=== PATIENT | female | born 1960 | race Caucasian/White ===

== ENCOUNTER → 2017-01-04 | Outpatient (CLI) | payer OTHER | END | disposition home or self-care (01) | LOC: LABPAT 14:31 | PROVIDERS: ATTEND Orthopaedic Surgery | DX: Z01.812 Encounter for preprocedural laboratory examination (principal) | CPT/HCPCS: 87070 ==

== ENCOUNTER 2017-01-09 12:34 | Inpatient (IN) | payer OTHER ==
[2017-01-04 10:31] VITALS: BMI 36.0
[~2017-01-09 12:34] MED LIST: ACETAMINOPHEN TAB 500 MG TAB PO ONE; DEXAMETHASONE SOD PHOSPHATE 10 MG/ML 1 ML VIAL IV ONE; HYDROmorphone 1 MG/ML 1 ML SYRINGE IVP PRN; ONDANSETRON 4 MG/2 ML VIAL IVP ONE; Pre Op ABX Message 1 EACH MISC MISCELLANE ONE; TRANEXAMIC ACID 1,000 MG in SODIUM CHLORIDE 0.9% 100 ML IVPB ONE; VANCOMYCIN 1,500 MG in SODIUM CHLORIDE 0.9% 250 ML IVPB ONE
[2017-01-09] MEDS ORDERED: LIDOCAINE 1% 20 ML VIAL (10MG/ML) FOR IV START INTRADERMA ONE (13:18)
[2017-01-09] MEDS: LACTATED RINGERS 1,000 ML IV SCH ×2 (13:19→21:26)
[2017-01-09] MEDS ORDERED: MIDAZOLAM 2 MG/2 ML VIAL IV ONE (14:05)
[2017-01-09] MEDS ORDERED: fentaNYL (PF) 50 MCG/ML 2 ML AMP ONE (16:43)
[2017-01-09] MEDS ORDERED: SODIUM CHLORIDE 0.9% 100 ML BAG ONE (16:43)
[2017-01-09] MEDS ORDERED: TRANEXAMIC ACID 1,000 MG/10 ML VIAL ONE (16:43)
[2017-01-09] MEDS ORDERED: MIDAZOLAM 2 MG/2 ML VIAL ONE (16:43)
[2017-01-09] MEDS ORDERED: ceFAZolin 3,000 MG in SODIUM CHLORIDE 0.9% IRRIGATIO 3,000 ML IRRIGATION ONE (16:43)
[2017-01-09] MEDS ORDERED: SODIUM CHLORIDE 0.9% 100 ML with ceFAZolin 2,000 MG IV ONE ×2 (16:43)
[2017-01-09] MEDS ORDERED: PHENYLEPHRINE-0.9% NACL SYG 1 MG/10 ML SYRINGE ONE (16:43)
[2017-01-09] MEDS ORDERED: PROPOFOL 10 MG/ML 20 ML VIAL IV ONE (16:43)
[2017-01-09] MEDS: ROPIVACAINE 246.25 MG, EPINEPHrine 0.5 MG, KETOROLAC 30 MG, cloNIDine HCL/PF 80 MCG, WA... MISCELLANE ONE ×10 (17:19→18:01)
[2017-01-09] MEDS ORDERED: WARFARIN 5 MG TAB PO ONE (18:00)
[2017-01-09] MEDS ORDERED: LACTATED RINGERS 1,000 ML IV ONE (18:11)
--- NOTE | 2017-01-09 18:36 | P.OP ---
Date of Procedure: 01/09/17 Procedure(s) Performed: PREOPERATIVE DIAGNOSIS: Right knee severe osteoarthritis with genu varum POSTOPERATIVE DIAGNOSIS: Right knee severe osteoarthritis with genu varum OPERATION: Right knee cemented total replacement arthroplasty. ANESTHESIA: Spinal ESTIMATED BLOOD LOSS: 100 ml. LUMP MACHINE OPERATOR: Christa Win PA-C (assistance with: patient positioning, retraction, exposure, hemostasis, leg positioning, implantation, irrigation, closure, dressing) COMPLICATIONS: None apparent. COMPONENTS IMPLANTED: Persona system from [employer] INDICATIONS: Mrs. Mcneal is a 56-year-old female with a history of right knee osteoarthritis. The patient's knee is end-stage according to MRI, and conservative management has failed. The operation of knee replacement has been discussed at length in the office, as well as potential risks and complications. These are inclusive of, but not limited to: bleeding, infection , scarring, discomfort, blood vessel and nerve damage, need for further surgery , failure to relieve symptoms, persistence, recurrence, or worsening of problems , loosening, dislocation, wear, blood clot, pulmonary embolism, , gait dysfunction, stiffness, and other risks as discussed in the office. The patient elects to proceed and the consent form has been signed. PROCEDURE: The patient was taken to the operating room and positioned on the operating room table in the supine position. Anesthesia was initiated. Care was taken to make sure that all pressure points were adequately padded. The operative lower extremity was prepped and draped in the usual aseptic fashion using ChloraPrep. Ioban drape was used for the case and the patient received intravenous antibiotics within one hour of the incision. A pneumotourniquet and leg oliva were used for the case. The limb was exsanguinated with an Esmarch bandage and the tourniquet was inflated to 350 mmHg. Time-out was called confirming the patient's identity, side, procedure and administration of antibiotics. The incision was then created midline directly over the knee, carried down through skin and into the subcutaneous tissues and down to fascia. Full thickness subcutaneous medial flap was developed. Medial parapatellar arthrotomy was performed and the interior of the knee was inspected. There was end-stage osteoarthritis of the knee with a mild to moderate genu varum type deformity. The fat pad was excised and proximal medial release on the tibia was completed using meticulous dissection and a curved osteotome. The anterior cruciate ligament was taken down. Note was made of significant attrition of the anterior and significant degenerative appearance of the posterior cruciate ligaments. The exposure was excellent. The knee was flexed 90 degrees and the patella was everted. A spot was chosen on the femur approximately 1 cm anterior to the posterior cruciate ligament insertion and an intramedullary hole was created within the femur. The intramedullary guide was then set to 5 degrees of valgus. The distal cutting block was attached and pinned into position. An appropriate amount of distal femoral resection was set. The oscillating saw was then used to make the distal femoral cut. This cut was confirmed to be flat with the flat end of an osteotome. The retractors were placed around the tibia and the tibial surface was addressed. The angle and depth of resection was adjusted using an extramedullary cutting guide. The guide had a built-in 3 degree posterior slope cut. Once the cutting guide was adjusted appropriately and in line with the axis of the tibia and confirmed to be in good position in relation to the second metatarsal and transmalleolar axis, the tibial cut was then created with protection of the posterior neurovascular structures and the collateral ligaments. The tibial cut surface was removed and sized. Femoral sizing was then accomplished using anterior referencing. Care was taken to analyze the posterior condyles for signs of deficiency or severe wear, and adjustments to the guide were made, as appropriate. 3 degree external rotation pins were placed. The cutting jig for the femur was applied to these pins. The planned cuts were further analyzed prior to performing them with the oscillating saw. No femoral notching was produced. Bone fragments were removed and the cut surfaces were finished, as necessary, with a reciprocating saw. Spacer block technique was then used to confirm that the flexion and extension gaps were equal. Soft tissue releases and adjustment of the tibial and/or femoral cuts were made, as necessary, until the gaps were equal. This included release of the posterior cruciate ligament, which was tight in this patient and , if left unreleased, would have resulted in poor kinematics and possibly early loosening. The femur was then further finished for a posterior cruciate ligament substituting component. Patellar resurfacing was performed using a reamer. The size of the required patellar component was estimated and the patellar surface was then reamed down to a residual thickness which would recreate the [place] thickness with the component. The placement of the patellar component was influenced by the degree of patellar subluxation, if any, noted on the preoperative x-rays. Prior to placing trial components, anesthetic solution consisting of ropivicaine with epinephrine, ketorolac, and clonidine was injected carefully and methodically in a grid pattern using aspiration technique into the soft tissue around the knee circumferentially, starting with the deeper tissues first and progressing to fascia, and then finally the skin/subcutaneous tissue. Particular care was taken when injecting the posterior capsule. The trial components were inserted. The tibial tray was allowed to self center and the patella was noted to track very well. The position of the tibial component was marked and the tibia was then finished for a stemmed tibial component. Cement was mixed on the back table and applied to the final components. Trial components were removed and the cut surfaces of the bone were pulse lavaged thoroughly and dried. Cement was then applied to the tibial surface and pressurized into the surface using finger pressurization technique. The tibial component was then applied and excess cement was removed after it was impacted securely and noted to be flush with the cut surface. In similar fashion, the cement was applied to the cut femoral surface, pressurized in using finger pressurization and the component was impacted into place. Excess cement was removed. The polyethylene spacer was then implanted and locked into position. The patellar component was then applied in similar technique and a patellar clamp was used to hold the patella in place as the cement hardened. Once the cement had fully hardened, the knee was reinspected. Any other cement extrusion was removed and final kinematic testing showed range of motion from 0 to 130 degrees with excellent stability, both medially and laterally and appropriate alignment of the leg. Patellar tracking was excellent. The knee was then thoroughly pulse lavaged with normal saline. The tourniquet was deflated and hemostasis was obtained with electrocautery and IV tranexamic acid, 1 g given at the start of the operation and 1 g at the start of closure. Closure was with #2 Ethibond in the fascia/capsule and supplemented with #2 Quill, 2-0 Vicryl suture was used for the subcutaneous tissues and 3-0 Quill for the skin. Dermabond/Steri-Strips were then applied. A lightly compressive dressing was applied using Webril and an Nick wrap. The patient was then transferred to stretcher and taken to the recovery room in stable condition. Sponge and needle counts were correct.
[2017-01-09] MEDS ORDERED: ACETAMINOPHEN TAB 325 MG TAB PO PRN (18:58)
[2017-01-09] MEDS ORDERED: NA PHOS,M-B/NA PHOS,DI-BA 133 ML ENEMA RECTAL PRN (18:58)
[2017-01-09] MEDS ORDERED: NALOXONE 0.4 MG/ML 1 ML VIAL IV PRN (18:58)
[2017-01-09] MEDS ORDERED: HYDROmorphone 1 MG/ML 1 ML SYRINGE IVP PRN ×2 (18:58)
[2017-01-09] MEDS ORDERED: MAGNESIUM HYDROXIDE 2,400 MG/10 ML CUP PO PRN (18:58)
[2017-01-09] MEDS ORDERED: BISACODYL 10 MG SUPP RECTAL PRN (18:58)
[2017-01-09] MEDS ORDERED: HYDROcodone/APAP 5-325MG 1 EACH TAB PO PRN (18:58)
[2017-01-09] MEDS: ONDANSETRON 4 MG/2 ML VIAL IVP PRN (19:05)
[2017-01-09] MEDS ORDERED: PROMETHAZINE INJ 25 MG/ML 1 ML VIAL IVPB ONE (19:14)
[2017-01-09] MEDS ORDERED: diphenhydrAMINE 50 MG/ML 1 ML VIAL IVP ONE (19:19)
[2017-01-09] MEDS ORDERED: FAMOTIDINE 20 MG/2 ML VIAL IVP ONE (19:26)
--- NOTE | 2017-01-09 19:56 | XR ---
EXAMINATION TYPE: XR knee limited RT DATE OF EXAM: 01/09/2017 7:32 PM CLINICAL HISTORY: Right knee pain and arthritis status post total knee replacement. TECHNIQUE: Portable AP and crosstable lateral views of the right knee are obtained immediately posto peratively. COMPARISON: None FINDINGS: [place] osseous structures are demineralized. Metallic hardware from total right knee arthr oplasty is seen and appears satisfactory in alignment and position. There is evidence of recent surg virgen with diffuse subcutaneous gas , and soft tissue swelling noted. IMPRESSION: METALLIC HARDWARE FROM TOTAL RIGHT KNEE ARTHROPLASTY IS SATISFACTORY IN ALIGNMENT.
[2017-01-09] MEDS: SENNOSIDES-DOCUSATE SODIUM 1 EACH TAB PO SCH (21:25)
[2017-01-10] MEDS: ceFAZolin 2 GM in SODIUM CHLORIDE 0.9% 100 ML IVPB SCH ×2 (00:36→07:18)
[2017-01-10] MEDS: HYDROcodone/APAP 5-325MG 1 EACH TAB PO PRN ×3 (00:39→11:23)
[2017-01-10] MEDS: LACTATED RINGERS 1,000 ML IV SCH ×5 (05:48→20:27)
[2017-01-10] MEDS: hydrOXYzine PAMOATE 25 MG CAP PO PRN ×4 (06:24→23:35)
[2017-01-10 07:34] LABS: INR 1.7 (<1.1); Prothrombin Time 16.2 sec (9.0-12.0)
[2017-01-10 08:29] LABS: Basophils % (A) 0 %; CHCM 33.6; Eosinophils % (A) 0 %; HCT 37.3 % (34.0-46.0); HDW 2.56; HGB 12.9 gm/dL (11.4-16.0); Luc # (Auto) 0.12; Luc % (Auto) 1; Lymphocytes # (A) 2.4 k/uL (1.0-4.8); Lymphocytes % (A) 19 %; MCHC 34.5 g/dL (31.0-37.0); MCV 95.9 fL (80.0-100.0); Mean Platelet Volume 8.2; Monocytes # (A) 0.6 k/uL (0-1.0); Monocytes % (A) 5 %; Neutrophils # (A) 9.1 k/uL (1.3-7.7); Neutrophils % (A) 74 %; RBC 3.89 m/uL (3.80-5.40); RDW 13.9 % (11.5-15.5); WBC 12.2 k/uL (3.8-10.6); WBC (Perox) 12.73
--- NOTE | 2017-01-10 09:26 | P.PN ---
Subjective Principal diagnosis: Status post right total knee arthroplasty Patient is postop day #1 from right total knee arthroplasty per Dr. Ness. She' s doing well. She has no new complaints. She denies new numbness, tingling, calf pain or other. Review of systems is negative for fever chills, chest pain , shortness breath, nausea, vomiting, headaches, slurred speech or other. Objective - Vital Signs Vital signs: Vital Signs Temp 98.1 F 01/10/17 08:10 Pulse 80 01/10/17 08:10 Resp 16 01/10/17 08:10 BP 109/53 01/10/17 08:10 Pulse Ox 95 01/10/17 08:10 Intake & Output 01/09/17 01/10/17 01/10/17 18:59 06:59 18:59 Intake Total 1501 250 Output Total 50 Balance 1451 250 Weight 104.326 kg Intake: IV 1501 250 Output: Estimated Blood Loss 50 Other: Voiding Method Toilet Toilet # Voids 1 - Exam Surgical wound is benign. There is no active bleeding, dehiscence or drainage. Neurovascular status of the right lower extremity is intact. She has active motor at the ankle, foot and toes. Sensation to light touch is intact throughout the right lower extremity. Calf is soft and nontender. 2+ dorsalis pedis pulse and less than 2 second cap refill is present. - Constitutional General appearance: Present: no acute distress - Psychiatric Psychiatric: Present: A&O x's 3, appropriate affect, intact judgment & insight - Labs CBC & Chem 7: 01/10/17 06:41 Labs: Abnormal Lab Results - Last 24 Hours (Table) 01/10/17 01/10/17 Range/Units 06:41 06:41 WBC 12.2 H (3.8-10.6) k/uL Neutrophils # 9.1 H (1.3-7.7) k/uL PT 16.2 H (9.0-12.0) sec Assessment and Plan (1) Osteoarthritis of right knee Narrative/Plan: She'll continue with routine postop orthopedic protocol including pain management, wound care, physical therapy, DVT prophylaxis and medical management. Expect that she'll discharge to home tomorrow with home health care. Status: Acute Time with Patient: Less than 30
[2017-01-10] MEDS ORDERED: diphenhydrAMINE ELIXIR 25 MG/10 ML CUP PO PRN (11:14)
[2017-01-10] MEDS: MULTIVITAMINS, THERA 1 EACH TAB PO SCH (13:39)
[2017-01-10] MEDS ORDERED: HYDROcodone/APAP 10-325MG 1 EACH TAB PO PRN (15:07)
[2017-01-10] MEDS: HYDROmorphone 1 MG/ML 1 ML SYRINGE IVP PRN ×2 (15:44→22:00)
[2017-01-10 16:15] LABS: Appearance,Urine Clear (Clear); Bilirubin,Urine Negative (Negative); Glucose,Urine (UA) Negative (Negative); Ketones,Urine Negative (Negative); Leukocyte Esterase,Urine Small (Negative); Nitrite,Urine Negative (Negative); Particle Count 614; Protein,Urine Negative (Negative); Specific Gravity,Urine 1.016 (1.001-1.035); UA Billing (MACRO vs. MICRO) MICRO; Urobilinogen,Urine <2.0 mg/dL (<2.0); WBC,Urine 7 /hpf (0-5)
[2017-01-10] MEDS: HYDROcodone/APAP 10-325MG 1 EACH TAB PO PRN ×2 (17:41→23:35)
--- NOTE | 2017-01-10 17:48 | CONS ---
DATE OF CONSULTATION: 01/10/2017 REASON FOR CONSULTATION: Advice regarding hyperlipidemia and other multiple medical issues, requested by Orthopedic Surgery. HISTORY OF PRESENT ILLNESS: This 56-year-old woman with a past medical history of GERD, hyperlipidemia, DJD, history of sleep apnea, history of stress incontinence, anxiety, depression, PTSD, underwent right knee joint arthroplasty by Dr. Ness. The patient is being closely monitored. There is no history of any fever, rigor, or chills. No history of any headache, loss of consciousness, seizures at this time. PAST MEDICAL HISTORY: 1. History of DJD. 2. History of hyperlipidemia. 3. Sleep apnea. 4. Stress incontinence. 5. Laparoscopic exam. 6. Anxiety. 7. Depression. 8. PTSD. HOME MEDICATIONS: 1. Trazodone 50 mg at bedtime. 2. Requip 1 mg at bedtime. 3. Lamictal 200 mg b.i.d. 4. Benadryl 12.5 mg daily p.r.n. 5. Wellbutrin 75 mg b.i.d. 6. Zocor 40 mg at bedtime. 7. Zoloft 100 mg b.i.d. 8. Ditropan 5 mg at bedtime. 9. Omeprazole 20 mg b.i.d. 10. Multivitamins 1 p.o. daily. 11. Depo-Provera 150 mg IM. 12. Claritin 10 mg daily. 13. Lidocaine 1 application topically p.r.n. 14. Hydrocodone 1 tablet p.o. t.i.d. 15. Vitamin D3 2000 daily. 16. Refresh Tears 1 drop b.i.d. 17. Pepto-Bismol 30 mL b.i.d. 18. Coumadin 2.5 mg daily. 19. Senokot-S one tablet b.i.d. 20. [place] 10 mg 1 to 2 q.6 p.r.n. ALLERGIES: 1. ALPRAZOLAM. 2. ASPIRIN. 3. DICLOFENAC. 4. DEPAKOTE. 5. DALMANE. 6. MOTRIN. 7. NSAIDS. 8. COMPAZINE. 9. SEROQUEL. 10. TOLECTIN. FAMILY HISTORY: No history of heart disease or strokes in the family. SOCIAL HISTORY: No history of smoking. Occasional alcohol intake. REVIEW OF SYSTEMS: ENT: No diminishing hearing. No diminished vision. CARDIOVASCULAR SYSTEM: No angina, palpitations. RESPIRATORY SYSTEM: No cough, hemoptysis. GI: No nausea, vomiting. : No dysuria. NERVOUS SYSTEM: No numbness or weakness. ALLERGY/IMMUNOLOGY: No asthma or hayfever. MUSCULOSKELETAL: As mentioned earlier. HEMATOLOGY/ONCOLOGY: No history of anemia. ENDOCRINE: No history of diabetes, hypothyroidism. CONSTITUTIONAL: As mentioned earlier. DERMATOLOGY: Negative. RHEUMATOLOGY: Negative. PSYCHIATRY: As mentioned earlier. PHYSICAL EXAMINATION: Alert and oriented x3. Pulse is 80, blood pressure 109/53, respiration 16, temperature 98.1, pulse ox 95% on room air. HEENT: Conjunctivae normal. NECK: No jugular venous distention. CARDIOVASCULAR SYSTEM: S1, S2 muffled. RESPIRATORY SYSTEM: Breath sounds diminished at the bases. No rhonchi. No crackles. ABDOMEN: Soft, non-tender. LEGS: Status post right knee arthroplasty. NERVOUS SYSTEM: Higher functions as mentioned earlier. Moves all 4 limbs. No focal motor or sensory deficit. LYMPHATICS: No lymph node palpable in neck, axillae or groin. SKIN: No ulcer, rash, bleeding. LABS: WBC 12.2, hemoglobin 12.9. INR 1.7. ASSESSMENT: 1. Status post right knee arthroplasty. 2. Increased white count, possibly reactive. 3. Anxiety, depression, post-traumatic stress disorder. 4. History of gastroesophageal reflux disease. 5. Hyperlipidemia. 6. History of degenerative joint disease. 7. Sleep apnea. 8. Stress incontinence. 9. FULL CODE. RECOMMENDATIONS AND DISCUSSION: In this 56-year-old woman who presented with multiple complex medical issues, we will monitor the patient closely, continue the current medications, continue symptomatic treatment. I would recommend resuming the home medications, DVT prophylaxis, incentive spirometry. Will follow the patient closely with you. Patient may be asked to follow up primary physician closely after discharge. Thank you, Dr. Ness, for letting us participate in the care of this patient.
[2017-01-10] MEDS ORDERED: WARFARIN 5 MG TAB PO ONE (18:00)
[2017-01-10] MEDS: CALCIUM CARBONATE 500 MG CHEWABLE PO PRN (20:23)
[2017-01-10] MEDS: SENNOSIDES-DOCUSATE SODIUM 1 EACH TAB PO SCH (20:24)
[2017-01-10] MEDS: ARTIFICIAL TEARS-HYPROMELLOSE DROPS 15 ML BTL BOTH EYES SCH (20:24)
[2017-01-10] MEDS: SERTRALINE 100 MG TAB PO SCH (20:25)
[2017-01-10] MEDS: PANTOPRAZOLE 40 MG TABLET PO SCH (20:25)
[2017-01-10] MEDS: lamoTRIgine 100 MG TAB PO SCH (20:25)
[2017-01-10] MEDS: buPROPion 75 MG TAB PO SCH (20:25)
[2017-01-10] MEDS: BISMUTH SUBSALICYLATE 4,192 MG/240 ML BOTTLE PO SCH (20:26)
[2017-01-10] MEDS ORDERED: ATORVASTATIN 20 MG TAB PO SCH (21:00)
[2017-01-10] MEDS ORDERED: traZODone HCL 50 MG TAB PO SCH (21:00)
[2017-01-10] MEDS ORDERED: OXYBUTYNIN CHLORIDE 5 MG TAB PO SCH (21:00)
[2017-01-11] MEDS: hydrOXYzine PAMOATE 25 MG CAP PO PRN (04:47)
[2017-01-11] MEDS: HYDROcodone/APAP 10-325MG 1 EACH TAB PO PRN ×2 (04:47→10:11)
[2017-01-11] MEDS: ONDANSETRON 4 MG/2 ML VIAL IVP PRN (04:50)
[2017-01-11] MEDS: ARTIFICIAL TEARS-HYPROMELLOSE DROPS 15 ML BTL BOTH EYES SCH (07:28)
[2017-01-11] MEDS: lamoTRIgine 100 MG TAB PO SCH (07:29)
[2017-01-11] MEDS: SERTRALINE 100 MG TAB PO SCH (07:29)
[2017-01-11] MEDS: PANTOPRAZOLE 40 MG TABLET PO SCH (07:29)
[2017-01-11] MEDS: buPROPion 75 MG TAB PO SCH (07:29)
[2017-01-11] MEDS: BISMUTH SUBSALICYLATE 4,192 MG/240 ML BOTTLE PO SCH (07:30)
[2017-01-11] MEDS: MULTIVITAMINS, THERA 1 EACH TAB PO SCH (07:30)
[2017-01-11 07:31] VITALS: RESP 16
[2017-01-11] MEDS: LACTATED RINGERS 1,000 ML IV SCH (07:31)
--- NOTE | 2017-01-11 08:21 | P.DS ---
Providers Date of admission: 01/09/17 12:34 Expected date of discharge: 01/11/17 Attending physician: Josué Ness Consults: 01/09/17 18:58 Consult Physician Routine Consulting Provider: Esvin Santana Consult Reason/Comments: medical management Do you want consulting provider notified?: Yes Primary care physician: Stated None - Discharge Diagnosis(es) (1) Unilateral primary osteoarthritis, right knee Current Visit: Yes Status: Acute (2) Status post total right knee replacement Current Visit: Yes Status: Acute Hospital Course: This is a 56-year-old female who was last seen with complaint of continued right knee pain. The patient has a known history of degenerative arthritis of the right knee and presents to discuss surgical options. After discussion and consideration the patient elects to proceed with total right knee arthroplasty. The patient is seen preoperatively by her primary care physician at the [facility] and cleared for surgery. The patient is admitted to [facility] for total right knee arthroplasty. The procedures performed without complication or sequelae. Patient is doing well postoperatively. Vital signs are stable at discharge. Labs are stable at discharge. the patient is ambulating well with walker with minimal assistance. The patient is discharged to home on postop day #2 pending medical clearance. [facility] see [facility]. Plan - Discharge Summary New Discharge Prescriptions: HYDROcodone/APAP 10-325MG [[place] 10-325] 1 - 2 tab PO Q4-6H PRN #90 tab PRN Reason: Pain Sennosides-Docusate Sodium [Senokot-S] 1 tab PO BID #60 tablet Warfarin [Coumadin] 2.5 mg PO DAILY #1 tab Discharge Medication List Bismuth Subsalicylate [Pepto-Bismol] 30 ml PO BID 01/04/17 [History] Carboxymethylcellulose Sodium [Refresh Tears] 1 drop BOTH EYES BID 01/04/17 [ History] Cholecalciferol [Vitamin D3] 2,000 unit PO DAILY 01/04/17 [History] HYDROcodone/APAP 10-325MG [[place] 10-325] 1 tab PO TID 01/04/17 [History] Lidocaine 4% Cream [Lmx 4] 1 applic TOPICAL BID PRN 01/04/17 [History] Loratadine [Claritin] 10 mg PO DAILY 01/04/17 [History] Medroxyprogesterone Acetate [Depo-Provera] 150 mg IM Q90D 01/04/17 [History] Multivitamin [Men's Multi-Vitamin] 1 tab PO DAILY 01/04/17 [History] Omeprazole 20 mg PO BID 01/04/17 [History] Oxybutynin Chloride [Ditropan] 5 mg PO HS 01/04/17 [History] Sertraline [Zoloft] 100 mg PO BID 01/04/17 [History] Simvastatin [Zocor] 40 mg PO HS 01/04/17 [History] buPROPion [Wellbutrin] 75 mg PO BID 01/04/17 [History] diphenhydrAMINE HCL [Benadryl] 12.5 mg PO DAILY PRN 01/04/17 [History] lamoTRIgine 200 mg PO BID 01/04/17 [History] rOPINIRole HCL [Requip] 1 mg PO HS 01/04/17 [History] traZODone HCL 50 mg PO HS 01/04/17 [History] HYDROcodone/APAP 10-325MG [[place] 10-325] 1 - 2 tab PO Q4-6H PRN #90 tab [Rx] Sennosides-Docusate Sodium [Senokot-S] 1 tab PO BID #60 tablet 01/09/17 [Rx] Warfarin [Coumadin] 2.5 mg PO DAILY #1 tab 01/09/17 [Rx] Follow up Appointment(s)/Referral(s): Christa iWn, PAC [PHYSICIAN APPLICATION SUPPORT] - 2 Weeks Ambulatory/Diagnostic Orders: Continuous Passive Motion (CPM) Machine [DME.AMB1] Time Frame: 3 Weeks, Facility : [facility], Location: Case Management Prothrombin Time INR [LAB.AMB] Location: Determined By Patient Activity/Diet/Wound Care/Special Instructions: May bear wt as tolerated. May shower if no drainage after 48h. CPM 5-6 h daily. [facility] - Discharge Disposition: HOME WITH HOME HEALTH SERVICES
[2017-01-11 08:27] LABS: INR 2.5 (<1.1); Prothrombin Time 24.4 sec (9.0-12.0)
[2017-01-11] MEDS ORDERED: LORATADINE 10 MG TAB PO SCH (09:00)
[2017-01-11] MEDS ORDERED: NON-FORMULARY DRUG (Multivitamin [Men's Multi-Vitamin] 1 TAB) PO SCH (09:00)
[2017-01-11] MEDS ORDERED: CHOLECALCIFEROL 1,000 UNIT TAB PO SCH (09:00)
[2017-01-11] MEDS: CALCIUM CARBONATE 500 MG CHEWABLE PO PRN ×2 (11:18→15:12)
[2017-01-11 13:54] VITALS: BP 105/69; PULSE 97; TEMP 98.1
== END 2017-01-11 15:44 | disposition home health service (06) | DRG 470 ==
LOC: 2ORMAIN 12:34 → 3SUR 18:53
PROVIDERS: ADMIT Orthopaedic Surgery; ATTEND Orthopaedic Surgery
PROC: 0SRC0J9 Replacement of Right Knee Joint with Synthetic Substitute, Cemented, Open Approach (ICD-10-PCS; principal; 2017-01-09 15:10)
DX: M17.11 Unilateral primary osteoarthritis, right knee (principal); F32.9 Major depressive disorder, single episode, unspecified; E78.5 Hyperlipidemia, unspecified; F43.10 Post-traumatic stress disorder, unspecified; G47.30 Sleep apnea, unspecified; K21.9 Gastro-esophageal reflux disease without esophagitis; N39.3 Stress incontinence (female) (male); M21.161 Varus deformity, not elsewhere classified, right knee; Z79.899 Other long term (current) drug therapy; Z88.6 Allergy status to analgesic agent; Z87.891 Personal history of nicotine dependence
CPT/HCPCS: 81001; 85025; 85610; 88300

== ENCOUNTER 2018-01-27 07:31 | Emergency (ER) | payer OTHER ==
[2018-01-27 07:39] VITALS: RESP 16
[2018-01-27] MEDS ORDERED: SODIUM CHLORIDE 0.9% 500 ML IV STA (08:03)
[2018-01-27] MEDS ORDERED: SODIUM CHLORIDE 0.9% 1,000 ML IV STA (08:03)
[2018-01-27] MEDS ORDERED: ONDANSETRON 4 MG/2 ML VIAL IVP STA (08:03)
[2018-01-27 08:23] LABS: Basophils % (A) 0 %; Eosinophils # (A) 0.1 k/uL (0-0.7); Eosinophils % (A) 1 %; HCT 41.1 % (34.0-46.0); HGB 14.1 gm/dL (11.4-16.0); Lymphocytes % (A) 9 %; MCHC 34.2 g/dL (31.0-37.0); MCV 90.6 fL (80.0-100.0); Monocytes # (A) 0.6 k/uL (0-1.0); Monocytes % (A) 5 %; Neutrophils # (A) 8.9 k/uL (1.3-7.7); Neutrophils % (A) 82 %; Platelet Count 281 k/uL (150-450); RBC 4.54 m/uL (3.80-5.40); RDW 14.1 % (11.5-15.5); WBC 10.9 k/uL (3.8-10.6)
--- NOTE | 2018-01-27 08:23 | ED ---
General Adult HPI - General Chief complaint: Nausea/Vomiting/Diarrhea Stated complaint: Hemroids Time Seen by Provider: 01/27/18 08:03 Source: patient, RN notes reviewed Mode of arrival: wheelchair Limitations: no limitations - History of Present Illness Initial comments: This a 57-year-old female presents emergency Department chief complaint of abdominal discomfort. Patient states she started not feeling well Thday felt that she had chills. Patient states that she vomited on and Monday no vomiting today she states she still feels nauseated though has tolerated oral intake. Patient continued to have chills today no reported fever. Patient denies chest pain, shortness breath, headache or dizziness. She states that she straining to go to the bathroom so her hemorrhoids are inflamed. She denies any bleeding. She states the pain is very mild but alleviated with ice. She is not using any [id number] hemorrhoid cream or Tucks pads. Patient denies any melena, hematochezia. She does have mild dysuria - Related Data Home Medications Medication Instructions Recorded Confirmed Bismuth Subsalicylate 30 ml PO BID 01/04/17 01/27/18 [Pepto-Bismol] Carboxymethylcellulose Sodium 1 drop BOTH EYES BID 01/04/17 01/27/18 [Refresh Tears] Cholecalciferol [Vitamin D3] 2,000 unit PO DAILY 01/04/17 01/27/18 HYDROcodone/APAP 10-325MG [[place] 1 tab PO TID 01/04/17 01/27/18 10-325] Lidocaine 4% Cream [Lmx 4] 1 applic TOPICAL BID PRN 01/04/17 01/27/18 Loratadine [Claritin] 10 mg PO DAILY 01/04/17 01/27/18 Medroxyprogesterone Acetate 150 mg IM Q90D 01/04/17 01/27/18 [Depo-Provera] Multivitamin [Men's Multi-Vitamin] 1 tab PO DAILY 01/04/17 01/27/18 Omeprazole 20 mg PO BID 01/04/17 01/27/18 Oxybutynin Chloride [Ditropan] 5 mg PO HS 01/04/17 01/27/18 Sertraline [Zoloft] 100 mg PO BID 01/04/17 01/27/18 Simvastatin [Zocor] 40 mg PO HS 01/04/17 01/27/18 buPROPion [Wellbutrin] 75 mg PO BID 01/04/17 01/27/18 diphenhydrAMINE HCL [Benadryl] 12.5 mg PO DAILY PRN 01/04/17 01/27/18 lamoTRIgine 200 mg PO BID 01/04/17 01/27/18 rOPINIRole HCL [Requip] 1 mg PO HS 01/04/17 01/27/18 traZODone HCL 50 mg PO HS 01/04/17 01/27/18 Previous Rx's Medication Instructions Recorded HYDROcodone/APAP 10-325MG [Partridge 1 - 2 tab PO Q4-6H PRN #90 tab 01/09/17 10-325] Sennosides-Docusate Sodium 1 tab PO BID #60 tablet 01/09/17 [Senokot-S] Warfarin [Coumadin] 2.5 mg PO DAILY #1 tab 01/09/17 Ciprofloxacin HCl [Cipro] 500 mg PO Q12HR #20 tablet 01/27/18 Hydrocortisone [Anusol-Hc] 1 applic RECTAL BID #30 gm 01/27/18 Ondansetron Odt [Zofran Odt] 4 mg PO Q8HR PRN #10 tab 01/27/18 Allergies Allergy/AdvReac Type Severity Reaction Status Date / Time alprazolam Allergy Dyspnea Verified 01/27/18 07:39 aspirin Allergy Dyspnea Verified 01/27/18 07:39 diclofenac Allergy Dyspnea Verified 01/27/18 07:39 divalproex sodium Allergy Unknown Verified 01/27/18 07:39 [From Depakote] flurazepam [From Dalmane] Allergy Dyspnea Verified 01/27/18 07:39 ibuprofen [From Motrin] Allergy Dyspnea Verified 01/27/18 07:39 NSAIDS (Non-Steroidal Allergy Dyspnea Verified 01/27/18 07:39 Anti-Inflamma prochlorperazine Allergy Dyspnea Verified 01/27/18 07:39 [From Compazine] quetiapine Allergy Unknown Verified 01/27/18 07:39 tolmetin [From Tolectin] Allergy Dyspnea Verified 01/27/18 07:39 Review of Systems ROS Statement: Those systems with pertinent positive or pertinent negative responses have been documented in the HPI. ROS Other: All systems not noted in ROS Statement are negative. Past Medical History Past Medical History: GERD/Reflux, Hyperlipidemia, Osteoarthritis (OA), Sleep Apnea/CPAP/BIPAP Additional Past Medical History / Comment(s): STRESS INCONTINENCE History of Any Multi-Drug Resistant Organisms: None Reported Past Surgical History: Heart Catheterization, Tonsillectomy Additional Past Surgical History / Comment(s): LAPAROSCOPIC EXAM , LEFT INDEX FINGER , COLONOSCOPY, EGD, DENTAL EXTRACTIONS Past Anesthesia/Blood Transfusion Reactions: No Reported Reaction Past Psychological History: Anxiety, Depression, PTSD Smoking Status: Never smoker - Past Family History Mother Family Medical History: No Reported History General Exam Limitations: no limitations General appearance: alert, in no apparent distress Head exam: Present: atraumatic, normocephalic, normal inspection Eye exam: Present: normal appearance, PERRL, EOMI. Absent: scleral icterus, conjunctival injection, periorbital swelling Respiratory exam: Present: normal lung sounds bilaterally. Absent: respiratory distress, wheezes, rales, rhonchi, stridor Cardiovascular Exam: Present: regular rate, normal rhythm, normal heart sounds. Absent: systolic murmur, diastolic murmur, rubs, gallop, clicks GI/Abdominal exam: Present: soft, tenderness (Mild discomfort with palpation to lower abdomen), normal bowel sounds. Absent: distended, guarding, rebound, rigid Back exam: Absent: CVA tenderness (R), CVA tenderness (L) Neurological exam: Present: alert, oriented X3, CN II-XII intact Skin exam: Present: warm, dry, intact, normal color. Absent: rash Course Vital Signs 01/27/18 07:34 Temperature 97.8 F Pulse Rate 87 Respiratory 16 Rate Blood Pressure 114/58 O2 Sat by Pulse 96 Oximetry Medical Decision Making - Medical Decision Making 57-year-old female presented emergency department for abdominal discomfort, Daren issues. Patient has a urinary tract infection. Patient was given Rocephin emergency from will be discharged on oral antibiotics. Patient also given antiemetics and Anusol for hemorrhoids. Patient denies use over-the- counter Tucks pads and follow-up with PCP return for any worsening symptoms. - Lab Data Result diagrams: 01/27/18 08:05 01/27/18 08:05 Lab Results 05/12/18 05/12/18 05/12/18 Range/Units 08:05 08:05 08:05 WBC 10.9 H (3.8-10.6) k/uL RBC 4.54 (3.80-5.40) m/uL Hgb 14.1 (11.4-16.0) gm/dL Hct 41.1 (34.0-46.0) % MCV 90.6 (80.0-100.0) fL MCH 31.0 (25.0-35.0) pg MCHC 34.2 (31.0-37.0) g/dL RDW 14.1 (11.5-15.5) % Plt Count 281 (150-450) k/uL Neutrophils % 82 % Lymphocytes % 9 % Monocytes % 5 % Eosinophils % 1 % Basophils % 0 % Neutrophils # 8.9 H (1.3-7.7) k/uL Lymphocytes # 1.0 (1.0-4.8) k/uL Monocytes # 0.6 (0-1.0) k/uL Eosinophils # 0.1 (0-0.7) k/uL Basophils # 0.0 (0-0.2) k/uL Sodium 146 H (137-145) mmol/L Potassium 4.2 (3.5-5.1) mmol/L Chloride 107 (98-107) mmol/L Carbon Dioxide 23 (22-30) mmol/L Anion Gap 16 mmol/L BUN 10 (7-17) mg/dL Creatinine 0.80 (0.52-1.04) mg/dL Est GFR (CKD-EPI)AfAm >90 (>60 ml/min/1.73 sqM) Est GFR (CKD-EPI)NonAf 83 (>60 ml/min/1.73 sqM) Glucose 110 H (74-99) mg/dL Calcium 9.6 (8.4-10.2) mg/dL Total Bilirubin 0.4 (0.2-1.3) mg/dL AST 25 (14-36) U/L ALT 33 (9-52) U/L Alkaline Phosphatase 116 (38-126) U/L Total Protein 6.5 (6.3-8.2) g/dL Albumin 4.0 (3.5-5.0) g/dL Amylase 33 (30-110) U/L Lipase 96 (23-300) U/L Urine Color Yellow Urine Appearance Turbid H (Clear) Urine pH 5.5 (5.0-8.0) Ur Specific [place] 1.019 (1.001-1.035) Urine Protein 1+ H (Negative) Urine Glucose (UA) Negative (Negative) Urine Ketones Negative (Negative) Urine Blood Trace H (Negative) Urine Nitrite Positive H (Negative) Urine Bilirubin Negative (Negative) Urine Urobilinogen <2.0 (<2.0) mg/dL Ur Leukocyte Esterase Large H (Negative) Urine RBC 2 (0-5) /hpf Urine WBC >182 H (0-5) /hpf Urine WBC Clumps Occasional H (None) /hpf Ur Squamous Epith Cells 1 (0-4) /hpf Urine Mucus Few H (None) /hpf Disposition Clinical Impression: Abdominal pain, UTI (urinary tract infection), Hemorrhoids Disposition: HOME SELF-CARE Condition: Stable Instructions: Urinary Tract Infection in Women (ED), Hemorrhoids (ED) Additional Instructions: Please return to the Emergency Department if symptoms worsen or any other concerns. Prescriptions: Ciprofloxacin HCl [Cipro] 500 mg PO Q12HR #20 tablet Hydrocortisone [Anusol-Hc] 1 applic RECTAL BID #30 gm Ondansetron Odt [Zofran Odt] 4 mg PO Q8HR PRN #10 tab PRN Reason: Nausea Is patient prescribed a controlled substance at d/c from ED?: No Referrals: Nonstaff,Physician [Primary Care Provider] - 1-2 days Time of Disposition: 08:48
--- NOTE | 2018-01-27 08:25 | XR ---
EXAMINATION TYPE: XR KUB , 2 VIEWS DATE OF EXAM ORDERED: 01/27/2018 HISTORY: Pain. COMPARISON: None. FINDINGS: The lung bases are clear. The abdominal gas pattern is normal. There is no evidence of obstruction or free air. No unusual calc ifications are seen. IMPRESSION: NO ACUTE INTRA-ABDOMINAL ABNORMALITY.
[2018-01-27 08:32] LABS: Appearance,Urine Turbid (Clear); Bilirubin,Urine Negative (Negative); Blood,Urine Trace (Negative); Color,Urine Yellow; Glucose,Urine (UA) Negative (Negative); Ketones,Urine Negative (Negative); Leukocyte Esterase,Urine Large (Negative); Mucus,Urine Few /hpf; Nitrite,Urine Positive (Negative); PH, Urine 5.5 (5.0-8.0); Protein,Urine 1+ (Negative); RBC,Urine 2 /hpf (0-5); Specific Gravity,Urine 1.019 (1.001-1.035); Squamous Epithelial Cell,Urine 1 /hpf (0-4); Urobilinogen,Urine <2.0 mg/dL (<2.0); WBC,Urine >182 /hpf (0-5)
[2018-01-27 08:33] LABS: ALT 33 U/L (9-52); AST 25 U/L (14-36); Alkaline Phosphatase 116 U/L (38-126); Amylase 33 U/L (30-110); Anion Gap 16 mmol/L; Blood Urea Nitrogen 10 mg/dL (7-17); Calcium 9.6 mg/dL (8.4-10.2); Carbon Dioxide 23 mmol/L (22-30); Chloride 107 mmol/L (98-107); Glucose 110 mg/dL (74-99); Lipase 96 U/L (23-300); Potassium 4.2 mmol/L (3.5-5.1); Sodium 146 mmol/L (137-145); Total Bilirubin 0.4 mg/dL (0.2-1.3); Total Protein 6.5 g/dL (6.3-8.2)
[2018-01-27] MEDS ORDERED: cefTRIAXone IN SWFI 1,000 MG/10 ML SYRINGE IVP STA (08:35)
[2018-01-27 08:58] VITALS: BP 89/51; PULSE 77; TEMP 97.9
== END 2018-01-27 09:42 | disposition home or self-care (01) ==
LOC: EC 07:31
DX: N39.0 Urinary tract infection, site not specified (principal); R10.30 Lower abdominal pain, unspecified; K64.9 Unspecified hemorrhoids; R11.0 Nausea; K21.9 Gastro-esophageal reflux disease without esophagitis; E78.5 Hyperlipidemia, unspecified; M19.90 Unspecified osteoarthritis, unspecified site; G47.30 Sleep apnea, unspecified; Z99.89 Dependence on other enabling machines and devices; F32.9 Major depressive disorder, single episode, unspecified; F41.9 Anxiety disorder, unspecified; F43.10 Post-traumatic stress disorder, unspecified; Z79.891 Long term (current) use of opiate analgesic; Z79.899 Other long term (current) drug therapy; Z88.6 Allergy status to analgesic agent; Z88.8 Allergy status to other drugs, medicaments and biological substances; Z95.818 Presence of other cardiac implants and grafts
CPT/HCPCS: 36415; 80053; 82150; 83690; 85025; 81001; 87086; 87077; 87186; 74018; 99284; 96374; 96375; 96361; J2405; J0696

== ENCOUNTER → 2018-03-26 | Outpatient (CLI) | payer OTHER ==
--- NOTE | 2018-03-30 11:05 | MM ---
Reason for exam: screening (asymptomatic). Physical Findings: A clinical breast exam by your physician is recommended on an annual basis and results should be correlated with mammographic findings. MG Screening Mammo w CAD Bilateral CC and MLO view(s) were taken. There are scattered fibroglandular densities. There is no discrete abnormality. No significant changes when compared with prior studies. ASSESSMENT: Negative, BI-RAD 1 RECOMMENDATION: Routine screening mammogram of both breasts in 1 year.
== END | disposition home or self-care (01) ==
LOC: RADMAMWWP 10:13
PROVIDERS: ATTEND Family Medicine
DX: Z12.31 Encounter for screening mammogram for malignant neoplasm of breast (principal)
CPT/HCPCS: 77067

== ENCOUNTER 2019-04-03 11:15 | Emergency (ER) | payer OTHER, MEDICARE ==
[2019-04-03 11:21] VITALS: TEMP 98
[2019-04-03] MEDS ORDERED: DIPH,PERTUS(ACELL)TETVAC-LF 0.5 ML VIAL IM ONE (11:23)
[2019-04-03] MEDS ORDERED: LIDOCAINE 1% INJ 10MG/ML (20 ML MDV) SQ ONE (11:23)
[2019-04-03] MEDS ORDERED: diphenhydrAMINE 50 MG CAP PO STA (11:41)
[2019-04-03 11:49] VITALS: RESP 18
--- NOTE | 2019-04-03 12:06 | XR ---
EXAMINATION TYPE: XR hand complete RT DATE OF EXAM: 04/03/2019 CLINICAL HISTORY: pain TECHNIQUE: Frontal, lateral and oblique images of the right hand are obtained. COMPARISON: None. FINDINGS: There is no acute fracture/dislocation evident. The joint spaces appear within normal limi ts. The overlying soft tissue appears unremarkable. IMPRESSION: There is no acute fracture or dislocation ICD 10 NO FRACTURE, INITIAL EVALUATION
--- NOTE | 2019-04-03 12:44 | ED ---
Wound/Laceration HPI - General Chief Complaint: Wound/Laceration Stated Complaint: finger lac Time Seen by Provider: 04/03/19 11:23 Source: patient Mode of arrival: ambulatory Limitations: no limitations - History of Present Illness Initial Comments: 58 year female presenting for multiple lacerations of the right hand. Patient states that she was cutting with a knife collection when she actually cut the top of her digits 2 through 4 of the right hand. Patient states that she thought they needed laceration repair presents immersed her for evaluation. Patient unsure of last tetanus. Patient denies numbness tingling or loss sensation or decreased range of motion. Patient states they're mostly superficial S-1 at the tip of the right index finger. Remaining review of systems negative upon arrival patient appears well signs of acute distress. - Related Data Home Medications Medication Instructions Recorded Confirmed Carboxymethylcellulose Sodium 1 drop BOTH EYES BID 01/04/17 04/03/19 [Refresh Tears] Cholecalciferol [Vitamin D3] 1,000 unit PO DAILY 01/04/17 04/03/19 Multivitamin [Men's Multi-Vitamin] 1 tab PO DAILY 01/04/17 04/03/19 Omeprazole 20 mg PO BID 01/04/17 04/03/19 Oxybutynin Chloride [Ditropan] 5 mg PO HS 01/04/17 04/03/19 Sertraline [Zoloft] 200 mg PO HS 01/04/17 04/03/19 buPROPion [Wellbutrin] 150 mg PO BID 01/04/17 04/03/19 lamoTRIgine 200 mg PO BID 01/04/17 04/03/19 rOPINIRole HCL [Requip] 1 mg PO HS 01/04/17 04/03/19 Cetirizine HCl [Zyrtec] 10 mg PO DAILY 04/03/19 04/03/19 Ciprofloxacin HCl [Cipro] 500 mg PO Q12HR 04/03/19 04/03/19 Docusate [Colace] 100 mg PO BID 04/03/19 04/03/19 Methocarbamol [Robaxin] 500 mg PO BID 04/03/19 04/03/19 Pregabalin [Lyrica] 200 mg PO BID 04/03/19 04/03/19 Simvastatin [Zocor] 40 mg PO HS 04/03/19 04/03/19 Allergies Allergy/AdvReac Type Severity Reaction Status Date / Time alprazolam Allergy Dyspnea Verified 04/03/19 11:55 aspirin Allergy Dyspnea Verified 04/03/19 11:55 diclofenac Allergy Dyspnea Verified 04/03/19 11:55 divalproex sodium Allergy Unknown Verified 04/03/19 11:55 [From Depakote] flurazepam [From Dalmane] Allergy Dyspnea Verified 04/03/19 11:55 ibuprofen [From Motrin] Allergy Dyspnea Verified 04/03/19 11:55 NSAIDS (Non-Steroidal Allergy Dyspnea Verified 04/03/19 11:55 Anti-Inflamma prochlorperazine Allergy Dyspnea Verified 04/03/19 11:55 [From Compazine] quetiapine Allergy Unknown Verified 04/03/19 11:55 tolmetin [From Tolectin] Allergy Dyspnea Verified 04/03/19 11:55 Androgenic Anabolic Steroid AdvReac Severe Chest Pain Verified 04/03/19 11:55 Review of Systems ROS Statement: Those systems with pertinent positive or pertinent negative responses have been documented in the HPI. ROS Other: All systems not noted in ROS Statement are negative. Past Medical History Past Medical History: GERD/Reflux, Hyperlipidemia, Osteoarthritis (OA), Sleep Apnea/CPAP/BIPAP Additional Past Medical History / Comment(s): STRESS INCONTINENCE History of Any Multi-Drug Resistant Organisms: None Reported Past Surgical History: Heart Catheterization, Tonsillectomy Additional Past Surgical History / Comment(s): LAPAROSCOPIC EXAM , LEFT INDEX FINGER , COLONOSCOPY, EGD, DENTAL EXTRACTIONS Past Anesthesia/Blood Transfusion Reactions: No Reported Reaction Past Psychological History: Anxiety, Depression, PTSD Smoking Status: Never smoker Past Alcohol Use History: None Reported Past Drug Use History: None Reported - Past Family History Mother Family Medical History: No Reported History General Exam - General Exam Comments Initial Comments: General: The patient is awake and alert, in no distress, and does not appear acutely ill. Eye: Pupils are equal, round and reactive to light, extra-ocular movements are intact. No nystagmus. There is normal conjunctiva bilaterally. No signs of icterus. Ears, nose, mouth and throat: There are moist mucous membranes and no oral lesions. Neck: The neck is supple, there is no tenderness or JVD. Cardiovascular: There is a regular rate and rhythm. No murmur, rub or gallop is appreciated. Respiratory: Lungs are clear to auscultation, respirations are non-labored, breath sounds are equal. No wheezes, stridor, rales, or rhonchi. Gastrointestinal: [Soft, non-distended, non-tender abdomen without masses or organomegaly noted. There is no rebound or guarding present. No CVA tenderness. Bowel sounds are unremarkable.] Musculoskeletal: Normal ROM, no tenderness. Strength 5/5. Sensation intact. Pulses equal bilaterally 2+. Neurological: A&O x 3. CN II-XII intact, There are no obvious motor or sensory deficits. Coordination appears grossly intact. Speech is normal. Skin: Skin is warm and dry and no rashes. Medical laceration of the tip of the right index finger about 2 cm in length. No involvement of nail bed. No nail avulsion. Superficial lacerations through the skin overlying the PIP joints of the digits 3 and 4, 1cm in length. superficial. No fb evident or evidence of tendon exposure. Psychiatric: Cooperative, appropriate mood & affect, normal judgment. Limitations: no limitations Course Vital Signs 04/03/19 04/03/19 04/03/19 11:18 11:48 13:01 Temperature 98 F 98 F Pulse Rate 88 75 72 Respiratory 16 18 18 Rate Blood Pressure 151/87 116/76 126/81 O2 Sat by Pulse 96 97 97 Oximetry Procedures - Laceration Laceration #1 Consent Obtained: verbal consent Indication: laceration Site: hand Size (cm): 2 Description: linear Depth: simple, single layer Anesthetic Used: lidocaine 1% Anesthesia Technique: local infiltration Amount (mls): 1 Pre-repair: wound explored, irrigated extensively, deep structures intact Type of Sutures: nylon Size of Sutures: 5-0 Number of Sutures: 5 Technique: simple, interrupted Patient Tolerated Procedure: well, no complications Laceration #2 Consent Obtained: verbal consent Indication: laceration Site: hand Size (cm): 1 Description: linear Depth: simple, single layer Pre-repair: wound explored, irrigated extensively, deep structures intact Size of Sutures: 5-0 Number of Sutures: 1 Technique: simple, interrupted Patient Tolerated Procedure: well, no complications Laceration #3 Consent Obtained: verbal consent Indication: laceration Site: upper extremity Size (cm): 1 Description: linear Depth: simple, single layer Pre-repair: wound explored, irrigated extensively, deep structures intact Type of Sutures: nylon Size of Sutures: 5-0 Number of Sutures: 1 Patient Tolerated Procedure: well, no complications Medical Decision Making - Medical Decision Making 58-year-old female presenting for laceration to right hand. They appear superficial in nature no evidence of tendon injury. This laceration is of the distal tip of the right index finger. 2 saturation length. Wounds were extensively cleansed with iodine and irrigated. Wounds closed. Only local anesthetic was used on the index finger laceration with patient permission given that only one suture is no surgery to close the remaining lacerations. She says revealing no acute osseous process. Return parameters were discussed at length patient was discharged appearing well Disposition Clinical Impression: Finger laceration, Finger pain Disposition: HOME SELF-CARE Condition: Good Instructions (If sedation given, give patient instructions): Care For Your Stitches (ED), Laceration (ED) Additional Instructions: Please use medication as discussed. Please follow-up for suture removal in 7-10 days. Please return to emergency room if the symptoms increase or worsen or for any other concerns, including fevers, finger swelling/redness or increasing pain. Is patient prescribed a controlled substance at d/c from ED?: No Referrals: Tristian Rodriges DO [Primary Care Provider] - 1-2 days Time of Disposition: 12:44
[2019-04-03 13:02] VITALS: BP 126/81; PULSE 72
== END 2019-04-03 13:10 | disposition home or self-care (01) ==
LOC: EC 11:15
DX: S61.210A Laceration without foreign body of right index finger without damage to nail, initial encounter (principal); Z23 Encounter for immunization; K21.9 Gastro-esophageal reflux disease without esophagitis; E78.5 Hyperlipidemia, unspecified; G47.30 Sleep apnea, unspecified; F41.9 Anxiety disorder, unspecified; F32.9 Major depressive disorder, single episode, unspecified; Z79.899 Other long term (current) drug therapy; Z88.6 Allergy status to analgesic agent; Z88.8 Allergy status to other drugs, medicaments and biological substances; Z95.5 Presence of coronary angioplasty implant and graft; W26.0XXA Contact with knife, initial encounter
CPT/HCPCS: 12002; 90471; 90715; 99283

== ENCOUNTER 2019-09-20 14:18 | Emergency (ER) | payer OTHER, MEDICARE ==
[2019-09-20 15:07] VITALS: RESP 18
[2019-09-20] MEDS ORDERED: METOCLOPRAMIDE 5 MG/ML 2 ML VIAL IVP STA (16:17)
[2019-09-20] MEDS ORDERED: diphenhydrAMINE 50 MG/ML 1 ML VIAL IVP STA (16:17)
[2019-09-20] MEDS ORDERED: KETOROLAC 30 MG/ML 1 ML VIAL IVP STA (16:27)
[2019-09-20] MEDS ORDERED: SODIUM CHLORIDE 0.9% 1,000 ML IV STA (16:47)
--- NOTE | 2019-09-20 18:02 | ED ---
Headache HPI - General Chief Complaint: Headache Stated Complaint: Migraine, vomiting Time Seen by Provider: 09/20/19 15:38 Mode of arrival: ambulatory Limitations: no limitations - History of Present Illness Initial Comments: Patient is 59-year-old female with history of migraines presenting to the emergency department with a chief complaint of migraine. Patient reports a gra dual onset of a headache that has been coming and going for about a week. She states mostly the pain is located in the frontal region and sometimes wraps around to the neck but not currently. She does report nausea with multiple episodes of nonbilious, nonbloody vomiting. She does report intermittent photosensitivity but denies visual disturbances. States this is not the worst headache of her life. Denies one-sided weakness or paresthesia. Denies night sweats fevers or chills. Patient does report recent extraction of multiple teeth but denies any oral pain. Denies any night sweats fevers or chills. Denies chest pain shortness of breath. - Related Data Home Medications Medication Instructions Recorded Confirmed Carboxymethylcellulose Sodium 1 drop BOTH EYES BID 01/04/17 04/03/19 [Refresh Tears] Cholecalciferol [Vitamin D3] 1,000 unit PO DAILY 01/04/17 04/03/19 Multivitamin [Men's Multi-Vitamin] 1 tab PO DAILY 01/04/17 04/03/19 Omeprazole 20 mg PO BID 01/04/17 04/03/19 Oxybutynin Chloride [Ditropan] 5 mg PO HS 01/04/17 04/03/19 Sertraline [Zoloft] 200 mg PO HS 01/04/17 04/03/19 buPROPion [Wellbutrin] 150 mg PO BID 01/04/17 04/03/19 lamoTRIgine 200 mg PO BID 01/04/17 04/03/19 rOPINIRole HCL [Requip] 1 mg PO HS 01/04/17 04/03/19 Cetirizine HCl [Zyrtec] 10 mg PO DAILY 04/03/19 04/03/19 Ciprofloxacin HCl [Cipro] 500 mg PO Q12HR 04/03/19 04/03/19 Docusate [Colace] 100 mg PO BID 04/03/19 04/03/19 Methocarbamol [Robaxin] 500 mg PO BID 04/03/19 04/03/19 Pregabalin [Lyrica] 200 mg PO BID 04/03/19 04/03/19 Simvastatin [Zocor] 40 mg PO HS 04/03/19 04/03/19 Allergies Allergy/AdvReac Type Severity Reaction Status Date / Time alprazolam Allergy Dyspnea Verified 04/03/19 11:55 aspirin Allergy Dyspnea Verified 04/03/19 11:55 diclofenac Allergy Dyspnea Verified 04/03/19 11:55 divalproex sodium Allergy Unknown Verified 04/03/19 11:55 [From Depakote] flurazepam [From Dalmane] Allergy Dyspnea Verified 04/03/19 11:55 ibuprofen [From Motrin] Allergy Dyspnea Verified 04/03/19 11:55 NSAIDS (Non-Steroidal Allergy Dyspnea Verified 04/03/19 11:55 Anti-Inflamma prochlorperazine Allergy Dyspnea Verified 04/03/19 11:55 [From Compazine] quetiapine Allergy Unknown Verified 04/03/19 11:55 tolmetin [From Tolectin] Allergy Dyspnea Verified 04/03/19 11:55 Androgenic Anabolic Steroid AdvReac Severe Chest Pain Verified 04/03/19 11:55 Review of Systems ROS Statement: Those systems with pertinent positive or pertinent negative responses have been documented in the HPI. ROS Other: All systems not noted in ROS Statement are negative. Past Medical History Past Medical History: GERD/Reflux, Hyperlipidemia, Osteoarthritis (OA), Sleep Apnea/CPAP/BIPAP Additional Past Medical History / Comment(s): STRESS INCONTINENCE History of Any Multi-Drug Resistant Organisms: None Reported Past Surgical History: Heart Catheterization, Tonsillectomy Additional Past Surgical History / Comment(s): LAPAROSCOPIC EXAM , LEFT INDEX FINGER , COLONOSCOPY, EGD, DENTAL EXTRACTIONS Past Anesthesia/Blood Transfusion Reactions: No Reported Reaction Past Psychological History: Anxiety, Depression, PTSD Smoking Status: Never smoker Past Alcohol Use History: None Reported Past Drug Use History: None Reported - Past Family History Mother Family Medical History: No Reported History General Exam Limitations: no limitations General appearance: alert, in no apparent distress, obese Head exam: Present: atraumatic, normocephalic, normal inspection Eye exam: Present: normal appearance, PERRL, EOMI. Absent: conjunctival injection Pupils: Present: normal accommodation ENT exam: Present: normal exam, normal oropharynx, mucous membranes moist, TM's normal bilaterally, normal external ear exam Neck exam: Present: normal inspection, full ROM. Absent: lymphadenopathy Respiratory exam: Present: normal lung sounds bilaterally. Absent: wheezes, rales Cardiovascular Exam: Present: regular rate, normal rhythm, normal heart sounds Extremities exam: Present: normal inspection, full ROM, normal capillary refill Back exam: Present: normal inspection, full ROM. Absent: CVA tenderness (R), CVA tenderness (L) Neurological exam: Present: alert, oriented X3, CN II-XII intact, normal gait Psychiatric exam: Present: normal affect, normal mood Skin exam: Present: warm, dry, intact, normal color Course Vital Signs 09/20/19 15:04 Temperature 97.8 F Pulse Rate 84 Respiratory 18 Rate Blood Pressure 120/80 O2 Sat by Pulse 96 Oximetry Medical Decision Making - Medical Decision Making Patient is a 59-year-old female with history of migraines presenting to the emergency department with chief complaint of migraine. On exam patient has no sinus tenderness. Does not have any neck tenderness bilaterally. Neurological examination unremarkable. Patient given fluids, Reglan, Benadryl and Toradol which she has previously tolerated. Patient reports improvement in her symptoms. Strict return parameters were thoroughly discussed the patient is understanding and agreeable. Patient advised to follow-up with neurology. Patient advised to take prescribed medication as directed. Patient prescribed Zofran. Case discussed with physician. Disposition Clinical Impression: Headache Disposition: HOME SELF-CARE Condition: Stable Instructions (If sedation given, give patient instructions): Tension Headache (ED) Additional Instructions: Please follow with primary care. Please return to emergency department if symptoms worsen. Is patient prescribed a controlled substance at d/c from ED?: No Referrals: Nonstaff,Physician [Primary Care Provider] - 1-2 days Time of Disposition: 18:01
[2019-09-20 18:21] VITALS: BP 119/64; PULSE 74; TEMP 98.2
== END 2019-09-20 18:21 | disposition home or self-care (01) ==
LOC: EC 14:18
DX: G43.909 Migraine, unspecified, not intractable, without status migrainosus (principal); K21.9 Gastro-esophageal reflux disease without esophagitis; E78.5 Hyperlipidemia, unspecified; G47.30 Sleep apnea, unspecified; F41.9 Anxiety disorder, unspecified; F32.9 Major depressive disorder, single episode, unspecified; Z79.899 Other long term (current) drug therapy; Z88.8 Allergy status to other drugs, medicaments and biological substances; Z88.6 Allergy status to analgesic agent; Z99.89 Dependence on other enabling machines and devices
CPT/HCPCS: 99283; 96374; 96375 ×2; 96361; J1200; J2765; J1885

== ENCOUNTER 2020-06-08 02:37 | Emergency (ER) | payer OTHER, MEDICARE ==
[2020-06-08 02:46] VITALS: PULSE 86; RESP 18; TEMP 98.2
--- NOTE | 2020-06-08 03:22 | XR ---
EXAMINATION TYPE: XR shoulder complete LT DATE OF EXAM: 06/08/2020 COMPARISON: NONE HISTORY: Pain TECHNIQUE: 3 views FINDINGS: There is no sign of fracture nor dislocation. Joint spaces are normal. There are no patholo gic calcifications. IMPRESSION: Negative left shoulder exam.
--- NOTE | 2020-06-08 03:23 | XR ---
EXAMINATION TYPE: XR forearm LT DATE OF EXAM: 06/08/2020 COMPARISON: NONE HISTORY: Pain TECHNIQUE: 2 views FINDINGS: Radius and ulna appear intact. I see no fracture nor dislocation. Joint spaces are normal. IMPRESSION: Negative left forearm exam.
--- NOTE | 2020-06-08 03:24 | XR ---
EXAMINATION TYPE: XR hand complete RT DATE OF EXAM: 06/08/2020 COMPARISON: NONE HISTORY: Pain TECHNIQUE: 3 views FINDINGS: The metacarpals are intact. I see no fracture nor dislocation. There is mild flexion deform ity of the DIP joint of the little finger. There is minor spurring at the IP joint of the thumb. Carp al bones are intact. IMPRESSION: No acute abnormality of the right hand.
--- NOTE | 2020-06-08 03:52 | XR ---
EXAMINATION TYPE: XR ribs LT w pa chest xray DATE OF EXAM: 06/08/2020 COMPARISON: NONE HISTORY: Fall. Pain. TECHNIQUE: 5 views FINDINGS: Heart appears enlarged. There is large hiatal hernia. There is no heart failure. There is n o pleural effusion or pneumothorax. There is poor inspiration. There is mild atelectasis at the lung bases. I see no rib fracture. IMPRESSION: No rib fracture seen. Poor inspiration with mild subsegmental atelectasis at the lung bases.
[2020-06-08] MEDS ORDERED: MORPHINE SULFATE 4 MG/ML SYRINGE IVP STA (04:06)
[2020-06-08] MEDS ORDERED: LIDOCAINE 5% PATCH TOPICAL STA (04:06)
--- NOTE | 2020-06-08 04:10 | ED ---
Fall HPI - General Chief Complaint: Fall Stated Complaint: Fall, LT shoulder pain Time Seen by Provider: 06/08/20 02:52 Source: patient Mode of arrival: wheelchair - History of Present Illness Initial Comments: Geena is an obese 60-year-old female with a history of chronic pain who presents the ER today for evaluation of left shoulder left forearm left rib and right hand pain after a fall off her porch at home. Patient reports that her primary care doctor is been trying to wean her off narcotic pain medication so her daughter suggest she start smoking CBD, patient reports she's been trying that for the first time this week and states that it makes her feel disoriented. She states that she was smoking it this evening while on her porch with her dog, she got up to walk inside when she either tripped over her dog or just lost her footing and fell off her porch approximately 3 feet onto her left side. She did not lose consciousness. She does not have any obvious head injuries. She complains of pain in her left shoulder and ribs, as well as pain in the right thumb. Patient states that initially she tried to manage the pain at home, she made a sling for her arm and splinted her right thumb however continued to have discomfort so decided come the ER for x-rays to make sure nothing was fractured. - Related Data Home Medications Medication Instructions Recorded Confirmed Carboxymethylcellulose Sodium 1 drop BOTH EYES BID 01/04/17 04/03/19 [Refresh Tears] Cholecalciferol [Vitamin D3] 1,000 unit PO DAILY 01/04/17 04/03/19 Multivitamin [Men's Multi-Vitamin] 1 tab PO DAILY 01/04/17 04/03/19 Omeprazole 20 mg PO BID 01/04/17 04/03/19 Oxybutynin Chloride [Ditropan] 5 mg PO HS 01/04/17 04/03/19 Sertraline [Zoloft] 200 mg PO HS 01/04/17 04/03/19 buPROPion [Wellbutrin] 150 mg PO BID 01/04/17 04/03/19 lamoTRIgine 200 mg PO BID 01/04/17 04/03/19 rOPINIRole HCL [Requip] 1 mg PO HS 01/04/17 04/03/19 Cetirizine HCl [Zyrtec] 10 mg PO DAILY 04/03/19 04/03/19 Ciprofloxacin HCl [Cipro] 500 mg PO Q12HR 04/03/19 04/03/19 Docusate [Colace] 100 mg PO BID 04/03/19 04/03/19 Pregabalin [Lyrica] 200 mg PO BID 04/03/19 04/03/19 Simvastatin [Zocor] 40 mg PO HS 04/03/19 04/03/19 methocarbamoL [Robaxin] 500 mg PO BID 04/03/19 04/03/19 Previous Rx's Medication Instructions Recorded Ondansetron Odt [Zofran Odt] 4 mg PO Q8HR PRN #20 tab 09/20/19 Lidocaine 5% Patch [Lidoderm] 1 patch TOPICAL DAILY #30 patch 06/08/20 Allergies Allergy/AdvReac Type Severity Reaction Status Date / Time alprazolam Allergy Dyspnea Verified 04/03/19 11:55 aspirin Allergy Dyspnea Verified 04/03/19 11:55 diclofenac Allergy Dyspnea Verified 04/03/19 11:55 divalproex sodium Allergy Unknown Verified 04/03/19 11:55 [From Depakote] flurazepam [From Dalmane] Allergy Dyspnea Verified 04/03/19 11:55 ibuprofen [From Motrin] Allergy Dyspnea Verified 04/03/19 11:55 NSAIDS (Non-Steroidal Allergy Dyspnea Verified 04/03/19 11:55 Anti-Inflamma prochlorperazine Allergy Dyspnea Verified 04/03/19 11:55 [From Compazine] quetiapine Allergy Unknown Verified 04/03/19 11:55 tolmetin [From Tolectin] Allergy Dyspnea Verified 04/03/19 11:55 Androgenic Anabolic Steroid AdvReac Severe Chest Pain Verified 04/03/19 11:55 bee venom protein (honey bee) AdvReac Rash/Hives Verified 06/08/20 02:46 Review of Systems ROS Statement: Those systems with pertinent positive or pertinent negative responses have been documented in the HPI. ROS Other: All systems not noted in ROS Statement are negative. Past Medical History Past Medical History: GERD/Reflux, Hyperlipidemia, Osteoarthritis (OA), Sleep Apnea/CPAP/BIPAP Additional Past Medical History / Comment(s): STRESS INCONTINENCE History of Any Multi-Drug Resistant Organisms: None Reported Past Surgical History: Heart Catheterization, Tonsillectomy Additional Past Surgical History / Comment(s): LAPAROSCOPIC EXAM , LEFT INDEX FINGER , COLONOSCOPY, EGD, DENTAL EXTRACTIONS Past Anesthesia/Blood Transfusion Reactions: No Reported Reaction Past Psychological History: Anxiety, Depression, PTSD Smoking Status: Vaper Past Alcohol Use History: None Reported Past Drug Use History: None Reported - Past Family History Mother Family Medical History: No Reported History General Exam - General Exam Comments Initial Comments: Physical Exam GENERAL: Patient is well-developed and well-nourished. Patient is nontoxic and well- hydrated and is in no distress. HENT: Normocephalic, Atraumatic. TMs normal bilaterally no hemotympanum No blankenship signs no raccoon eyes EYES: PERRL, EOMI PULMONARY: Unlabored respirations. No audible rales rhonchi or wheezing was noted. CARDIOVASCULAR: There is a regular rate and rhythm without any murmurs gallops or rubs. ABDOMEN: Soft and nontender with normal bowel sounds. SKIN: Skin is clear with no lesions or rashes and otherwise unremarkable. : Deferred NEUROLOGIC: Patient is alert and oriented x3. Moving all extremities spontaneously MUSCULOSKELETAL: Normal extremities with adequate strength and full range of motion. No lower extremity swelling or edema. No calf tenderness. No obvious injuries or bruising noted in the left arm right hand or left ribs PSYCHIATRIC: Normal psychiatric evaluation. Course Vital Signs 06/08/20 06/08/20 02:42 04:33 Temperature 98.2 F Pulse Rate 86 Respiratory 18 Rate Blood Pressure 137/81 118/77 O2 Sat by Pulse 99 Oximetry Medical Decision Making - Medical Decision Making The patient was seen and evaluated, history was obtained from the patient Earlier in the evening the patient had a fall proximally 3 feet from her porch to the ground. No head injuries X-rays were obtained and revealed no fractures of the shoulder, forearm, right hand, left ribs Results were discussed with the patient. Patient expresses concern that her doctors trying to take her off of Vicodin I advised that she'll need to follow up with her doctor about this. We will treat her left-sided rib pain with lidocaine patches. Unfortunately patient reports an ALLERGY to Tylenol as well as all NSAIDs therefore I recommended supportive care with heat ice and rest Return parameters were discussed and the patient was discharged home in stable condition Disposition Clinical Impression: Fall Disposition: HOME SELF-CARE Condition: Stable Instructions (If sedation given, give patient instructions): Fall Prevention (ED) Prescriptions: Lidocaine 5% Patch [Lidoderm] 1 patch TOPICAL DAILY #30 patch Is patient prescribed a controlled substance at d/c from ED?: No When asked, does pt state using other controlled substances?: No Referrals: Nonstaff,Physician [Primary Care Provider] - 1-2 days
[2020-06-08 04:34] VITALS: BP 118/77
== END 2020-06-08 04:25 | disposition home or self-care (01) ==
LOC: EC 02:37
DX: Z04.3 Encounter for examination and observation following other accident (principal); Z88.6 Allergy status to analgesic agent; K21.9 Gastro-esophageal reflux disease without esophagitis; E78.5 Hyperlipidemia, unspecified; G47.30 Sleep apnea, unspecified; Z79.899 Other long term (current) drug therapy; Z88.8 Allergy status to other drugs, medicaments and biological substances; Z91.030 Bee allergy status; Z99.89 Dependence on other enabling machines and devices; F17.290 Nicotine dependence, other tobacco product, uncomplicated
CPT/HCPCS: 71101; 73030; 73090; 73130; 99283; 96374; J2270

== ENCOUNTER 2020-06-08 14:50 | Emergency (ER) | payer MEDICARE, OTHER ==
[2020-06-08] MEDS ORDERED: ORPHENADRINE 30 MG/ML 2 ML VIAL IVP STA (16:02)
[2020-06-08] MEDS ORDERED: fentaNYL (PF) 50 MCG/ML 2 ML AMP IV STA (16:02)
[2020-06-08 16:37] LABS: Basophils # (A) 0.1 k/uL (0-0.2); Basophils % (A) 1 %; Eosinophils # (A) 0.2 k/uL (0-0.7); Eosinophils % (A) 2 %; HCT 40.5 % (34.0-46.0); HGB 13.1 gm/dL (11.4-16.0); Lymphocytes # (A) 2.3 k/uL (1.0-4.8); Lymphocytes % (A) 24 %; MCH 29.7 pg (25.0-35.0); MCHC 32.3 g/dL (31.0-37.0); Mean Platelet Volume 8.6; Monocytes # (A) 0.6 k/uL (0-1.0); Monocytes % (A) 6 %; Neutrophils # (A) 6.4 k/uL (1.3-7.7); Neutrophils % (A) 67 %; Platelet Count 260 k/uL (150-450); RBC 4.41 m/uL (3.80-5.40); RDW 14.8 % (11.5-15.5); WBC 9.6 k/uL (3.8-10.6)
[2020-06-08 16:48] LABS: Albumin 4.1 g/dL (3.5-5.0); Calcium 9.4 mg/dL (8.4-10.2); Magnesium 1.9 mg/dL (1.6-2.3); Potassium 4.4 mmol/L (3.5-5.1); Total Bilirubin 0.3 mg/dL (0.2-1.3); Total Protein 6.9 g/dL (6.3-8.2)
[2020-06-08 16:59] LABS: INR 0.9 (<1.2); Partial Thromboplastin Time 22.9 sec (22.0-30.0); Prothrombin Time 9.6 sec (9.0-12.0)
[2020-06-08 17:01] LABS: D-Dimer 1.87 mg/L FEU (<0.60)
--- NOTE | 2020-06-08 17:02 | XR ---
EXAMINATION TYPE: XR chest 2V DATE OF EXAM: 06/08/2020 COMPARISON: 06/08/2020 HISTORY: Pain TECHNIQUE: 2 views FINDINGS: Heart is enlarged. There is no heart failure. There is no pleural effusion or pneumothorax. There is moderate-sized hiatal hernia. There are chest leads. IMPRESSION: Hiatal hernia. No active cardiopulmonary disease. Mild cardiomegaly. No change compared t o exam one hour ago.
--- NOTE | 2020-06-08 17:11 | ED ---
Recheck HPI - General Chief Complaint: Recheck/Abnormal Lab/Rx Stated Complaint: SOB, L Sd Arm Pain Time Seen by Provider: 06/08/20 15:32 Source: patient, RN notes reviewed, old records reviewed Mode of arrival: wheelchair Limitations: no limitations - History of Present Illness Initial Comments: This is a 59-year-old female who was just discharged earlier this morning after falling off her porch who complains of severe left-sided chest and shoulder p ain. She did have x-rays at that time which were negative for evidence of fracture. She states she has increased pain worsen when she left and also increased pain when she tries to breathe. No cough or phlegm production no fevers chills or sweats she does have a history of chronic pain secondary to the left knee surgery in the past. No other complaints or modifying factors at this time - Related Data Home Medications Medication Instructions Recorded Confirmed Carboxymethylcellulose Sodium 1 drop BOTH EYES BID 01/04/17 04/03/19 [Refresh Tears] Cholecalciferol [Vitamin D3] 1,000 unit PO DAILY 01/04/17 04/03/19 Multivitamin [Men's Multi-Vitamin] 1 tab PO DAILY 01/04/17 04/03/19 Omeprazole 20 mg PO BID 01/04/17 04/03/19 Oxybutynin Chloride [Ditropan] 5 mg PO HS 01/04/17 04/03/19 Sertraline [Zoloft] 200 mg PO HS 01/04/17 04/03/19 buPROPion [Wellbutrin] 150 mg PO BID 01/04/17 04/03/19 lamoTRIgine 200 mg PO BID 01/04/17 04/03/19 rOPINIRole HCL [Requip] 1 mg PO HS 01/04/17 04/03/19 Cetirizine HCl [Zyrtec] 10 mg PO DAILY 04/03/19 04/03/19 Ciprofloxacin HCl [Cipro] 500 mg PO Q12HR 04/03/19 04/03/19 Docusate [Colace] 100 mg PO BID 04/03/19 04/03/19 Pregabalin [Lyrica] 200 mg PO BID 04/03/19 04/03/19 Simvastatin [Zocor] 40 mg PO HS 04/03/19 04/03/19 methocarbamoL [Robaxin] 500 mg PO BID 04/03/19 04/03/19 Previous Rx's Medication Instructions Recorded Ondansetron Odt [Zofran Odt] 4 mg PO Q8HR PRN #20 tab 09/20/19 Hydrocodone/Acetaminophen [[place] 1 each PO Q6HR PRN #20 tab 06/08/20 5-325] Lidocaine 5% Patch [Lidoderm] 1 patch TOPICAL DAILY #30 patch 06/08/20 Orphenadrine [Norflex] 100 mg PO Q12H #7 tablet.er 06/08/20 Allergies Allergy/AdvReac Type Severity Reaction Status Date / Time alprazolam Allergy Dyspnea Verified 06/08/20 15:02 aspirin Allergy Dyspnea Verified 06/08/20 15:02 diclofenac Allergy Dyspnea Verified 06/08/20 15:02 divalproex sodium Allergy Unknown Verified 06/08/20 15:02 [From Depakote] flurazepam [From Dalmane] Allergy Dyspnea Verified 06/08/20 15:02 ibuprofen [From Motrin] Allergy Dyspnea Verified 06/08/20 15:02 NSAIDS (Non-Steroidal Allergy Dyspnea Verified 06/08/20 15:02 Anti-Inflamma prochlorperazine Allergy Dyspnea Verified 06/08/20 15:02 [From Compazine] quetiapine Allergy Unknown Verified 06/08/20 15:02 tolmetin [From Tolectin] Allergy Dyspnea Verified 06/08/20 15:02 Androgenic Anabolic Steroid AdvReac Severe Chest Pain Verified 06/08/20 15:02 bee venom protein (honey bee) AdvReac Rash/Hives Verified 06/08/20 15:02 Review of Systems ROS Statement: Those systems with pertinent positive or pertinent negative responses have been documented in the HPI. ROS Other: All systems not noted in ROS Statement are negative. Past Medical History Past Medical History: GERD/Reflux, Hyperlipidemia, Osteoarthritis (OA), Sleep Apnea/CPAP/BIPAP Additional Past Medical History / Comment(s): STRESS INCONTINENCE History of Any Multi-Drug Resistant Organisms: None Reported Past Surgical History: Heart Catheterization, Tonsillectomy Additional Past Surgical History / Comment(s): LAPAROSCOPIC EXAM , LEFT INDEX FINGER , COLONOSCOPY, EGD, DENTAL EXTRACTIONS Past Anesthesia/Blood Transfusion Reactions: No Reported Reaction Past Psychological History: Anxiety, Depression, PTSD Smoking Status: Vaper Past Alcohol Use History: None Reported Past Drug Use History: None Reported - Past Family History Mother Family Medical History: No Reported History General Exam - General Exam Comments Initial Comments: This is a well-developed well-nourished awake alert oriented 3 female Limitations: no limitations General appearance: alert, anxious, in distress Head exam: Present: atraumatic, normocephalic, normal inspection Eye exam: Present: normal appearance, PERRL, EOMI. Absent: scleral icterus, conjunctival injection, periorbital swelling ENT exam: Present: normal exam, mucous membranes moist Neck exam: Present: normal inspection. Absent: tenderness, meningismus, lymphadenopathy Respiratory exam: Present: chest wall tenderness, decreased breath sounds. Absent: respiratory distress, wheezes, rales, rhonchi, stridor Cardiovascular Exam: Present: regular rate, normal rhythm, normal heart sounds. Absent: systolic murmur, diastolic murmur, rubs, gallop, clicks GI/Abdominal exam: Present: soft, normal bowel sounds. Absent: distended, tenderness, guarding, rebound, rigid Extremities exam: Present: normal inspection, tenderness (Tenderness palpation of left shoulder somewhat decreased range of motion no crepitation no step-off), normal capillary refill. Absent: full ROM, pedal edema, joint swelling, calf tenderness Back exam: Present: normal inspection Neurological exam: Present: alert, oriented X3, CN II-XII intact Psychiatric exam: Present: normal affect, normal mood Skin exam: Present: warm, dry, intact, normal color. Absent: rash Course Vital Signs 06/08/20 06/08/20 06/08/20 14:58 16:42 17:36 Temperature 99.3 F Pulse Rate 86 58 L 80 Respiratory 20 18 16 Rate Blood Pressure 105/71 117/76 132/64 O2 Sat by Pulse 98 94 L 95 Oximetry 06/08/20 18:34 Temperature Pulse Rate 80 Respiratory 15 Rate Blood Pressure 118/73 O2 Sat by Pulse 99 Oximetry Medical Decision Making - Medical Decision Making Patient was feeling improved patient will be discharged on appropriate medication she is a follow-up with her doctor return when necessary she does not have pain medication at home right now - Lab Data Result diagrams: 06/08/20 16:24 06/08/20 16:24 Lab Results 09/21/20 09/21/20 09/21/20 Range/Units 16:24 16:24 16:24 WBC 9.6 (3.8-10.6) k/uL RBC 4.41 (3.80-5.40) m/uL Hgb 13.1 (11.4-16.0) gm/dL Hct 40.5 (34.0-46.0) % MCV 92.0 (80.0-100.0) fL MCH 29.7 (25.0-35.0) pg MCHC 32.3 (31.0-37.0) g/dL RDW 14.8 (11.5-15.5) % Plt Count 260 (150-450) k/uL Neutrophils % 67 % Lymphocytes % 24 % Monocytes % 6 % Eosinophils % 2 % Basophils % 1 % Neutrophils # 6.4 (1.3-7.7) k/uL Lymphocytes # 2.3 (1.0-4.8) k/uL Monocytes # 0.6 (0-1.0) k/uL Eosinophils # 0.2 (0-0.7) k/uL Basophils # 0.1 (0-0.2) k/uL PT 9.6 (9.0-12.0) sec INR 0.9 (<1.2) APTT 22.9 (22.0-30.0) sec D-Dimer 1.87 H (<0.60) mg/L FEU Sodium 139 (137-145) mmol/L Potassium 4.4 (3.5-5.1) mmol/L Chloride 102 (98-107) mmol/L Carbon Dioxide 30 (22-30) mmol/L Anion Gap 7 mmol/L BUN 9 (7-17) mg/dL Creatinine 0.85 (0.52-1.04) mg/dL Est GFR (CKD-EPI)AfAm 87 (>60 ml/min/1.73 sqM) Est GFR (CKD-EPI)NonAf 76 (>60 ml/min/1.73 sqM) Glucose 100 H (74-99) mg/dL Calcium 9.4 (8.4-10.2) mg/dL Magnesium 1.9 (1.6-2.3) mg/dL Total Bilirubin 0.3 (0.2-1.3) mg/dL AST 25 (14-36) U/L ALT 16 (4-34) U/L Alkaline Phosphatase 152 H (38-126) U/L Creatine Kinase 166 H (30-135) U/L Troponin I (0.000-0.034) ng/mL NT-Pro-B Natriuret Pep pg/mL Total Protein 6.9 (6.3-8.2) g/dL Albumin 4.1 (3.5-5.0) g/dL 06/08/20 06/08/20 Range/Units 16:24 16:24 WBC (3.8-10.6) k/uL RBC (3.80-5.40) m/uL Hgb (11.4-16.0) gm/dL Hct (34.0-46.0) % MCV (80.0-100.0) fL MCH (25.0-35.0) pg MCHC (31.0-37.0) g/dL RDW (11.5-15.5) % Plt Count (150-450) k/uL Neutrophils % % Lymphocytes % % Monocytes % % Eosinophils % % Basophils % % Neutrophils # (1.3-7.7) k/uL Lymphocytes # (1.0-4.8) k/uL Monocytes # (0-1.0) k/uL Eosinophils # (0-0.7) k/uL Basophils # (0-0.2) k/uL PT (9.0-12.0) sec INR (<1.2) APTT (22.0-30.0) sec D-Dimer (<0.60) mg/L FEU Sodium (137-145) mmol/L Potassium (3.5-5.1) mmol/L Chloride (98-107) mmol/L Carbon Dioxide (22-30) mmol/L Anion Gap mmol/L BUN (7-17) mg/dL Creatinine (0.52-1.04) mg/dL Est GFR (CKD-EPI)AfAm (>60 ml/min/1.73 sqM) Est GFR (CKD-EPI)NonAf (>60 ml/min/1.73 sqM) Glucose (74-99) mg/dL Calcium (8.4-10.2) mg/dL Magnesium (1.6-2.3) mg/dL Total Bilirubin (0.2-1.3) mg/dL AST (14-36) U/L ALT (4-34) U/L Alkaline Phosphatase (38-126) U/L Creatine Kinase (30-135) U/L Troponin I <0.012 (0.000-0.034) ng/mL NT-Pro-B Natriuret Pep 52 pg/mL Total Protein (6.3-8.2) g/dL Albumin (3.5-5.0) g/dL - EKG Data -: EKG Interpreted by Me EKG shows normal: sinus rhythm EKG Comments: Sinus rhythm of 76 HI interval 178 QRS 80 QT since QTC 426/479 st-t wave changes - Radiology Data Radiology results: report reviewed (I did review the imaging and report no acute findings.), image reviewed Disposition Clinical Impression: Left-sided chest wall pain, Left shoulder pain Disposition: HOME SELF-CARE Condition: Good Instructions (If sedation given, give patient instructions): Thoracic Pain (ED), Shoulder Pain (ED) Prescriptions: Hydrocodone/Acetaminophen [[place] 5-325] 1 each PO Q6HR PRN #20 tab PRN Reason: Pain Orphenadrine [Norflex] 100 mg PO Q12H #7 tablet.er Is patient prescribed a controlled substance at d/c from ED?: Yes When asked, does pt state using other controlled substances?: No If prescribed controlled substance>3 days was MAPS reviewed?: Prescribed <3 Days If opioid is for acute pain is fill amount 7 days or less?: Yes If Rx opioid, was Start Talking consent form obtained?: Yes Referrals: Nonstaff,Physician [Primary Care Provider] - 1-2 days
--- NOTE | 2020-06-08 18:30 | CT ---
EXAMINATION TYPE: CT angio chest DATE OF EXAM: 06/08/2020 COMPARISON: None HISTORY: CT DLP: mGycm Automated exposure control for dose reduction was used. CONTRAST: Images were obtained from the thoracic inlet to the diaphragm with IV contrast Isovue 100 mL. There a re 3-D post processed images. There is mild subsegmental atelectasis at the lung bases. There is minimal pleural thickening in the left paraspinal left lower lobe. There is hiatal hernia. Heart appears fairly normal. There is no per icardial effusion. There is no pleural effusion. Thoracic aorta is intact. There is no aneurysm or dissection. There is normal contrast opacification of the pulmonary arteries. There are no filling defects. There is no mediastinal adenopathy. There are no hilar masses. Bony thorax is intact. IMPRESSION: No evidence of pulmonary embolism. Patchy pleural reaction and subsegmental atelectasis at the lung b ases. Large hiatal hernia.
[2020-06-08] MEDS ORDERED: fentaNYL (PF) 50 MCG/ML 2 ML AMP IVP PRN (19:00)
[2020-06-08 19:28] VITALS: BP 117/65; PULSE 60; RESP 18; TEMP 98.3
== END 2020-06-08 19:42 | disposition home or self-care (01) ==
LOC: EC 14:50
DX: M25.512 Pain in left shoulder (principal); R07.89 Other chest pain; F41.9 Anxiety disorder, unspecified; F32.9 Major depressive disorder, single episode, unspecified; F43.10 Post-traumatic stress disorder, unspecified; Z95.5 Presence of coronary angioplasty implant and graft; F17.290 Nicotine dependence, other tobacco product, uncomplicated; K21.9 Gastro-esophageal reflux disease without esophagitis; E78.5 Hyperlipidemia, unspecified; M19.90 Unspecified osteoarthritis, unspecified site; G47.33 Obstructive sleep apnea (adult) (pediatric); Z99.89 Dependence on other enabling machines and devices; Z79.899 Other long term (current) drug therapy; Z88.6 Allergy status to analgesic agent; Z88.8 Allergy status to other drugs, medicaments and biological substances; Z91.030 Bee allergy status; W08.XXXA Fall from other furniture, initial encounter
CPT/HCPCS: 36415; 93005; 85379; 83880; 80053; 82550; 83735; 84484; 85025; 85610; 85730; 71046; 71275; 99284; 96374; 96375; 96376; J2360; J3010; Q9967

== ENCOUNTER → 2020-07-06 | Outpatient (CLI) | payer OTHER, MEDICARE ==
--- NOTE | 2020-07-06 16:50 | XR ---
RESULT: HISTORY: [id number] RT SHOULDER AND HAND PAIN FALL [id number] TECHNIQUE: 3 views of the left shoulder. 3 views of the left hand. COMPARISON: 06/08/2020. FINDINGS: Left shoulder: There is no acute fracture or dislocation. The visualized joint spaces are preserved. No radiopaque foreign body. Right hand: There is mildly displaced, extra-articular transverse fracture of the thumb distal phalan geal base. No evidence of dislocation. The joint spaces are otherwise preserved. No radiopaque foreig n body. IMPRESSION: Right thumb distal phalanx fracture. No acute fracture of the left shoulder.
== END | disposition home or self-care (01) ==
LOC: RAD 16:09
PROVIDERS: ATTEND Physician Assistant
DX: S62.521A Displaced fracture of distal phalanx of right thumb, initial encounter for closed fracture (principal); M79.644 Pain in right finger(s); M25.512 Pain in left shoulder

== ENCOUNTER → 2020-11-19 | Outpatient (CLI) | payer MEDICARE, OTHER ==
--- NOTE | 2020-11-20 11:14 | MM ---
Reason for exam: screening (asymptomatic). Last mammogram was performed 2 years and 8 months ago. History: Patient is postmenopausal. Took hormonal contraceptives for 20 years beginning at age 30. Physical Findings: A clinical breast exam by your physician is recommended on an annual basis and results should be correlated with mammographic findings. MG 3D Screening Mammo W/Cad Bilateral CC and MLO view(s) were taken. XCCL view(s) were taken of the left breast. Prior study comparison: March 26, 2018, bilateral MG screening mammo w CAD. There are scattered fibroglandular densities. No significant changes when compared with prior studies. ASSESSMENT: Benign, BI-RAD 2 RECOMMENDATION: Routine screening mammogram of both breasts in 1 year.
== END ==
LOC: RADMAMWWP 11:36
PROVIDERS: ATTEND Family Medicine
DX: Z12.31 Encounter for screening mammogram for malignant neoplasm of breast (principal); Z78.0 Asymptomatic menopausal state
CPT/HCPCS: 77063; 77067

== ENCOUNTER 2020-12-01 08:59 | Day surgery (SDC) | payer OTHER ==
[2020-11-26 14:40] VITALS: BMI 38.2
[~2020-12-01 08:59] MED LIST changes: -ACETAMINOPHEN TAB 500 MG TAB PO ONE; -DEXAMETHASONE SOD PHOSPHATE 10 MG/ML 1 ML VIAL IV ONE; -HYDROmorphone 1 MG/ML 1 ML SYRINGE IVP PRN; +LACTATED RINGERS 1,000 ML IV SCH; +LIDOCAINE 1% (10MG/ML) FOR IV START INTRADERMA PRN; -ONDANSETRON 4 MG/2 ML VIAL IVP ONE; -Pre Op ABX Message 1 EACH MISC MISCELLANE ONE; -TRANEXAMIC ACID 1,000 MG in SODIUM CHLORIDE 0.9% 100 ML IVPB ONE; -VANCOMYCIN 1,500 MG in SODIUM CHLORIDE 0.9% 250 ML IVPB ONE
[2020-12-01 09:33] VITALS: TEMP 96.9
[2020-12-01] MEDS ORDERED: PROPOFOL 10 MG/ML 20 ML VIAL IV ONE (10:07)
[2020-12-01] MEDS ORDERED: IV FLUID CONTINUATION 1,000 ML IV ONE (10:38)
--- NOTE | 2020-12-01 10:44 | P.PCN ---
Date of Procedure: 12/01/20 Description of Procedure: Brief history: Patient is a pleasant 60-year-old presenting for outpatient EGD and colonoscopy for evaluation of Louis's esophagus and history of polyps. Patient believes last colonoscopy was 5 years ago and last EGD was prior to this. Denies any signs or symptoms of GI bleeding. Patient is on omeprazole 20 mg twice daily. Procedure performed: Esophagogastroduodenoscopy with biopsy, polypectomy and Endo Clip placement 2 Colonoscopy Estimated blood loss: Minimal. Preoperative diagnosis: Louis's esophagus, history of colon polyps, patient was last colonoscopy was 5 years ago Anesthesia: [facility] Procedure: After informed consent was obtained from the patient was brought into the endoscopy unit and IV sedation was administered by anesthesia under continuous monitoring. Initially upper endoscopy was done. The Olympus GF 190 video endoscope was inserted into the mouth and esophagus intubated without any difficulty and was gradually advanced into the stomach and duodenum and carefully examined. The bulb and second part of the duodenum appeared normal, with biopsies taken. The scope was then withdrawn into the stomach adequately insufflated with air and upon careful examination the antrum and body, cardia and fundus was significant for some mild punctate erythema in the antrum and body suggestive of mild gastritis with biopsies taken. There was a 1 cm polyp in the gastric body on the greater curvature of the stomach removed with hot snare polypectomy with Endo Clip placement 2 for hemostasis and Baker net used to remove the polyp. The scope was then withdrawn into the esophagus. The GE junction was located at 33 cm to the incisors, with lower esophageal biopsies taken in the setting of history of Louis's esophagus. 7 cm hiatal hernia noted. It appeared regular with no erythema erosions or ulcerations. Rest of the esophagus appeared normal. Patient tolerated the procedure well. At this time the patient continued to remain sedation. Initial digital rectal examination was normal. Olympus CF 190 video colonoscope was then inserted into the rectum and gradually advanced to the descending colon at which time the colonoscopy was aborted due to poor prep. Careful examination was performed as the scope was gradually being withdrawn. The prep was poor with solid stool throughout the examined colon. Visualization of the descending colon, sigmoid colon and rectum was severely prohibited by poor prep with solid stool th roughout the examined colon and colonoscopy aborted due to poor prep. A few scattered diverticula noted in the sigmoid colon. Retroflexion was performed in the rectum and no lesions were noted, low-grade internal hemorrhoids. Patient tolerated the procedure well. Impression: 1. Gastric polyp removed with hot snare polypectomy, with Endo Clip placement 2 for hemostasis. Biopsies of the duodenum, antrum body and lower esophagus. Large hiatal hernia. Mild gastritis. 2. Poor prep colon incomplete/aborted colonoscopy due to poor prep. Mild sigmoid diverticulosis. Internal hemorrhoids. Recommendations: Findings of this examination were discussed with the patient. Okay to resume diet. Okay to resume diet. Await pathology from biopsies and polypectomy. Continue omeprazole therapy. Repeat EGD in 2 years if Louis's esophagus is confirmed. Repeat colonoscopy within 3 months for incomplete colonoscopy due to poor prep, with 2 day prep recommended at that time.
[2020-12-01 11:16] VITALS: BP 105/61; PULSE 87; RESP 16
== END 2020-12-01 11:27 | disposition home or self-care (01) ==
LOC: ORWHC2ENDO 08:59
PROVIDERS: ATTEND Internal Medicine
DX: Z12.11 Encounter for screening for malignant neoplasm of colon (principal); K57.30 Diverticulosis of large intestine without perforation or abscess without bleeding; K64.8 Other hemorrhoids; K31.9 Disease of stomach and duodenum, unspecified; K29.50 Unspecified chronic gastritis without bleeding; K31.7 Polyp of stomach and duodenum; K44.9 Diaphragmatic hernia without obstruction or gangrene; K08.89 Other specified disorders of teeth and supporting structures; G47.33 Obstructive sleep apnea (adult) (pediatric); R32 Unspecified urinary incontinence; F32.9 Major depressive disorder, single episode, unspecified; K21.9 Gastro-esophageal reflux disease without esophagitis; Z87.19 Personal history of other diseases of the digestive system; Z98.890 Other specified postprocedural states; Z86.010 Personal history of colon polyps; Z88.8 Allergy status to other drugs, medicaments and biological substances; Z88.6 Allergy status to analgesic agent; Z91.030 Bee allergy status; Z79.899 Other long term (current) drug therapy; Z79.891 Long term (current) use of opiate analgesic; Z96.653 Presence of artificial knee joint, bilateral; Z90.89 Acquired absence of other organs
CPT/HCPCS: 88305; 43239; 43251; 45330; J2704; 43255; 45378

== ENCOUNTER 2021-01-14 17:29 | Emergency (ER) | payer OTHER ==
[2021-01-14 17:44] VITALS: BP 146/87; PULSE 103; RESP 16; TEMP 98.1
--- NOTE | 2021-01-14 18:41 | ED ---
ENT HPI - General Source: patient Mode of arrival: ambulatory Limitations: no limitations <Rashi Holcomb - Last Filed: 01/14/21 19:15> <Karyna Baig - Last Filed: 01/15/21 01:04> - General Chief complaint: ENT Stated complaint: neck/head pain Time Seen by Provider: 01/14/21 17:53 - History of Present Illness Initial comments: 60-year-old female presents to emergency department a chief complaint of ear pain 3 weeks. Patient reports the pain is located in the posterior region of bilateral ears. She denies any erythema or swelling to the region but reports tenderness to the touch and itching. She denies any decreased in hearing. Denies any discharge from the ears. Reports taking amoxicillin with no significant improvement in symptoms. Patient is currently still amoxicillin has several days left. She spoke to her primary care physician who advised her to come to emergency department for CT imaging to rule out mastoiditis. Patient is not diabetic. He denies any fevers or chills. (Rashi Holcomb) - Related Data Home Medications Medication Instructions Recorded Confirmed Carboxymethylcellulose Sodium 1 drop BOTH EYES BID 01/04/17 11/26/20 [Refresh Tears] Cholecalciferol [Vitamin D3] 1,000 unit PO DAILY 01/04/17 11/26/20 Omeprazole 20 mg PO BID 01/04/17 11/26/20 Oxybutynin Chloride [Ditropan] 5 mg PO HS 01/04/17 11/26/20 Sertraline [Zoloft] 200 mg PO HS 01/04/17 11/26/20 lamoTRIgine 200 mg PO BID 01/04/17 11/26/20 rOPINIRole HCL [Requip] 1 mg PO HS 01/04/17 11/26/20 Cetirizine HCl [Zyrtec] 10 mg PO DAILY 04/03/19 11/26/20 Docusate [Colace] 100 mg PO BID 04/03/19 11/26/20 Pregabalin [Lyrica] 200 mg PO BID 04/03/19 11/26/20 methocarbamoL [Robaxin] 500 mg PO BID 04/03/19 11/26/20 Lidocaine 5% Patch [Lidoderm] 1 patch TOPICAL DAILY PRN 11/26/20 11/26/20 Multivitamins, Thera [Multivitamin 1 tab PO DAILY 11/26/20 11/26/20 (formulary)] Previous Rx's Medication Instructions Recorded Hydrocodone/Acetaminophen [Maribel 1 each PO Q6HR PRN #20 tab 06/08/20 5-325] Amoxic-Pot Clav 875-125Mg 1 tab PO Q12HR #20 tablet 01/14/21 [Augmentin 875-125] Allergies Allergy/AdvReac Type Severity Reaction Status Date / Time alprazolam Allergy Dyspnea Verified 01/14/21 17:42 aspirin Allergy Dyspnea Verified 01/14/21 17:42 diclofenac Allergy Dyspnea Verified 01/14/21 17:42 divalproex sodium Allergy Unknown Verified 01/14/21 17:42 [From Depakote] flurazepam [From Dalmane] Allergy Dyspnea Verified 01/14/21 17:42 ibuprofen [From Motrin] Allergy Dyspnea Verified 01/14/21 17:42 NSAIDS (Non-Steroidal Allergy Dyspnea Verified 01/14/21 17:42 Anti-Inflamma prochlorperazine Allergy Dyspnea Verified 01/14/21 17:42 [From Compazine] quetiapine Allergy Unknown Verified 01/14/21 17:42 tolmetin [From Tolectin] Allergy Dyspnea Verified 01/14/21 17:42 Androgenic Anabolic Steroid AdvReac Severe Chest Pain Verified 01/14/21 17:42 bee venom protein (honey bee) AdvReac Rash/Hives Verified 01/14/21 17:42 gabapentin [From Neurontin] AdvReac Rash/Hives Verified 01/14/21 17:42 Review of Systems ROS Other: All systems not noted in ROS Statement are negative. <Rashi Holcomb - Last Filed: 01/14/21 19:15> ROS Other: All systems not noted in ROS Statement are negative. <Karyna Baig - Last Filed: 01/15/21 01:04> ROS Statement: Those systems with pertinent positive or pertinent negative responses have been documented in the HPI. Past Medical History Past Medical History: GERD/Reflux, Hyperlipidemia, Osteoarthritis (OA), Sleep Apnea/CPAP/BIPAP Additional Past Medical History / Comment(s): STRESS INCONTINENCE. "gallbladder is sluggish". has cpap machine History of Any Multi-Drug Resistant Organisms: None Reported Past Surgical History: Heart Catheterization, Joint Replacement, Tonsillectomy Additional Past Surgical History / Comment(s): LAPAROSCOPIC EXAM , LEFT INDEX FINGER , COLONOSCOPY, EGD, DENTAL EXTRACTIONS. mary knee replacement Past Anesthesia/Blood Transfusion Reactions: No Reported Reaction Past Psychological History: Anxiety, Depression, PTSD Smoking Status: Never smoker - Past Family History Mother Family Medical History: No Reported History <Rashi Holcomb - Last Filed: 01/14/21 19:15> General Exam Limitations: no limitations General appearance: alert, in no apparent distress Head exam: Present: atraumatic, normocephalic, normal inspection Eye exam: Present: normal appearance, PERRL, EOMI Pupils: Present: normal accommodation ENT exam: Present: normal exam, normal oropharynx, mucous membranes moist, TM's normal bilaterally, normal external ear exam. Absent: other (Tenderness in the posterior auricular region, bilaterally. No swelling or erythema.) Neck exam: Present: normal inspection, full ROM. Absent: tenderness Respiratory exam: Present: normal lung sounds bilaterally. Absent: respiratory distress, wheezes, rales Cardiovascular Exam: Present: regular rate, normal rhythm, normal heart sounds. Absent: systolic murmur Extremities exam: Present: normal inspection, full ROM, normal capillary refill. Absent: tenderness, pedal edema, joint swelling Back exam: Present: normal inspection, full ROM. Absent: tenderness, CVA tenderness (R), CVA tenderness (L) Neurological exam: Present: alert, oriented X3 Psychiatric exam: Present: normal affect, normal mood Skin exam: Present: warm, dry, intact, normal color <Rashi Holcomb - Last Filed: 01/14/21 19:15> Course Vital Signs 01/14/21 17:42 Temperature 98.1 F Pulse Rate 103 H Respiratory 16 Rate Blood Pressure 146/87 O2 Sat by Pulse 99 Oximetry Medical Decision Making <Rashi Holcomb - Last Filed: 01/14/21 19:15> - Radiology Data Radiology results: report reviewed, image reviewed <Karyna Baig - Last Filed: 01/15/21 01:04> - Medical Decision Making At this time, patient care signed out to Karyna Baig NP (Rashi Holcomb) 60 year-old female patient was signed out to me by Rashi Jovanovski PA-c. I did see and evaluate the patient, performed independent history and physical exam. Patient reported having left ear pain for the last 9 days states she started to have right ear pain today. States the pain is mostly to the posterior ear. No drainage. No fevers. Has been doing flonase and taking amoxicillin. She did run out of Jiberish, generally takes 10/325, her doctor recently dropped her to 5/325 which she states is not working for her. I did review CT results there is no evidence for mastoiditis. She is afebrile with normal vitals. We'll change amoxicillin to Augmentin. She'll be discharged her primary care physician for recheck in 1-2 days. Instructed to follow-up with ENT specialist. Return parameters were discussed in detail. She verbalizes understanding and agrees with this plan. Case discussed with my attending Dr. Payton. (Karyna Baig) - Radiology Data CT of the internal auditory canals without contrast are obtained. Report review ed in its entirety. Impression by Dr. Isaac Russ shows no significant abdomen abnormalities seen to account for patient's symptoms. (Karyna Baig) Disposition <Rashi Holcomb - Last Filed: 01/14/21 19:15> Is patient prescribed a controlled substance at d/c from ED?: No Time of Disposition: 20:40 <Karyna Baig - Last Filed: 01/15/21 01:04> Clinical Impression: Left ear pain Disposition: HOME SELF-CARE Condition: Good Instructions (If sedation given, give patient instructions): Earache (ED) Additional Instructions: Take medication as directed. Follow up with the ENT specialist as soon as possible. Return for any new, worsening, or concerning symptoms. Prescriptions: Amoxic-Pot Clav 875-125Mg [Augmentin 875-125] 1 tab PO Q12HR #20 tablet Referrals: Nonstaff,Physician [REFERRING] - 1-2 days
--- NOTE | 2021-01-14 20:10 | CT ---
EXAMINATION TYPE: CT IAC WO CON DATE OF EXAM: 01/14/2021 COMPARISON: Comparison: None HISTORY: Bilateral mastoid pain. CT DLP: 269.5mGycm Automated exposure control for dose reduction was used. FINDINGS: The external auditory canals are patent bilaterally. Mastoid air cells show no evidence of abnormal opacification bilaterally. The middle ear ossicles are symmetric and unremarkable. There is no evidence of suspicious surrounding soft tissue density to suggest cholesteatoma. The scutum is preserved bilaterally. The cochlea and the semicircular canals are symmetric and unremarkable. Ves tibular aqueduct and internal carotid canal appear unremarkable. Temporomandibular joints are mainta ined bilaterally. IMPRESSION: No significant abnormality seen to account for patient's symptoms.
[2021-01-14] MEDS ORDERED: HYDROcodone/APAP 5-325MG 1 EACH TAB PO STA (20:40)
== END 2021-01-14 20:48 | disposition home or self-care (01) ==
LOC: EC 17:29
DX: H92.02 Otalgia, left ear (principal); K21.9 Gastro-esophageal reflux disease without esophagitis; E78.5 Hyperlipidemia, unspecified; M19.90 Unspecified osteoarthritis, unspecified site; G47.33 Obstructive sleep apnea (adult) (pediatric); Z99.81 Dependence on supplemental oxygen; F32.9 Major depressive disorder, single episode, unspecified
CPT/HCPCS: 70480; 99283

== ENCOUNTER → 2021-03-16 | Outpatient (CLI) | payer OTHER | END | disposition home or self-care (01) | LOC: LABWHC1 13:00 | PROVIDERS: ATTEND Surgery Plastic and Reconstructive Surgery | DX: I11.9 Hypertensive heart disease without heart failure (principal) | CPT/HCPCS: 36415; 93005 ==

== ENCOUNTER 2021-04-02 09:09 | Day surgery (SDC) | payer OTHER ==
[2021-04-01 09:24] VITALS: BMI 37.0
--- NOTE | 2021-04-02 07:46 | P.GSHP ---
History of Present Illness H&P Date: 04/02/21 CHIEF COMPLAINT: Cholecystitis HISTORY OF PRESENT ILLNESS: The patient is a 60-year-old female who presents with history of epigastric including right upper quadrant abdominal pain. She underwent diagnostic studies for her gallbladder. Separately her clinical picture was consistent with cholecystitis. Now she presents for surgical intervention. PAST MEDICAL HISTORY: Please see list PAST SURGICAL HISTORY: Please see list MEDICATIONS: Please see list ALLERGIES: Please see list SOCIAL HISTORY: Please see list FAMILY HISTORY: Please see list REVIEW OF ORGAN SYSTEMS: CONSTITUTIONAL: No reports of fevers or chills. HEENT: Denies any troubles with the vision or hearing. PHYSICAL EXAM: VITAL SIGNS: Afebrile vital signs stable GENERAL: Well-developed pleasant in no acute distress. HEENT: No scleral icterus. Extraocular movements grossly intact. Moist buccal mucosa. NECK: Supple without lymphadenopathy. CHEST: Unlabored respirations. Equal bilateral excursions. CARDIOVASCULAR: Regular rate regular rhythm rhythm. Distal 2+ pulses. ABDOMEN: Soft, nondistended. Tender along the epigastrium and right upper quadrant. MUSCULOSKELETAL: No clubbing, cyanosis, or edema. NEURO: Cranial nerves II to XII within normal limits. No focal or lateralizing signs. PSYCH: Alert and oriented to person, place and time. SKIN: Well-perfused good skin turgor. ASSESSMENT: 1. Epigastric and right upper quadrant abdominal pain 2. Chronic cholecystitis 3. Symptomatic gallstones. PLAN: 1. Will need a robotic cholecystectomy possible open. Benefits and risks were described. 2. Heparin for DVT prophylaxis 5000 units. 3. Antibiotic prophylaxis. Past Medical History Past Medical History: GERD/Reflux, Rheumatoid Arthritis (RA), Sleep Apnea/CPAP/BIPAP Additional Past Medical History / Comment(s): STRESS INCONTINENCE, migraines, "gallbladder is sluggish" , no using cpap, History of Any Multi-Drug Resistant Organisms: None Reported Past Surgical History: Heart Catheterization, Joint Replacement, Orthopedic Surgery, Tonsillectomy Additional Past Surgical History / Comment(s): LEFT INDEX FINGER , COLONOSCOPY, EGD, DENTAL EXTRACTIONS,. mary knee replacement (left knee x 2), laser surgery for cervical dysplagia Past Anesthesia/Blood Transfusion Reactions: No Reported Reaction Additional Past Anesthesia/Blood Transfusion Reaction / Comment(s): had diff breathing with dalmane Smoking Status: Former smoker - Past Family History Mother Family Medical History: No Reported History Father Family Medical History: Cancer Medications and Allergies Home Medications Medication Instructions Recorded Confirmed Type Carboxymethylcellulose Sodium 1 drop BOTH EYES BID 01/04/17 04/01/21 History [Refresh Tears] Cholecalciferol [Vitamin D3] 1,000 unit PO DAILY 01/04/17 04/01/21 History Omeprazole 20 mg PO 0700,1200 01/04/17 04/01/21 History Oxybutynin Chloride [Ditropan] 5 mg PO HS 01/04/17 04/01/21 History rOPINIRole HCL [Requip] 1 mg PO HS 01/04/17 04/01/21 History Docusate [Colace] 100 mg PO BID 04/03/19 04/01/21 History Hydrocodone/Acetaminophen [[place] 1 each PO Q6HR PRN #20 tab 06/08/20 04/01/21 Rx 5-325] Lidocaine 5% Patch [Lidoderm] 1 patch TOPICAL DAILY PRN 11/26/20 04/01/21 History Multivitamins, Thera [Multivitamin 1 tab PO DAILY 11/26/20 04/01/21 History (formulary)] Albuterol Sulfate [Proair 1 puff PO QID PRN 04/01/21 04/01/21 History Respiclick] Capsaicin Cream [Trixaicin Cream] 1 applic TOPICAL DIRECTED PRN 04/01/21 04/01/21 History DULoxetine HCL [Cymbalta] 60 mg PO 0700,1200 04/01/21 04/01/21 History Loratadine-Pseudoeph 10-240 mg 1 tab PO DAILY 04/01/21 04/01/21 History [Claritin-D 24 Hour] Melatonin 10 mg PO HS PRN 04/01/21 04/01/21 History OXcarbazepine [Trileptal] 75 mg PO 0700,1200 04/01/21 04/01/21 History Simvastatin 40 mg PO HS 04/01/21 04/01/21 History Allergies Allergy/AdvReac Type Severity Reaction Status Date / Time alprazolam Allergy Dyspnea Verified 04/01/21 09:00 aspirin Allergy Dyspnea Verified 04/01/21 09:00 diclofenac Allergy Dyspnea Verified 04/01/21 09:00 divalproex sodium Allergy Unknown Verified 04/01/21 09:00 [From Depakote] flurazepam [From Dalmane] Allergy Dyspnea Verified 04/01/21 09:00 ibuprofen [From Motrin] Allergy Dyspnea Verified 04/01/21 09:00 NSAIDS (Non-Steroidal Allergy Dyspnea Verified 04/01/21 09:00 Anti-Inflamma prochlorperazine Allergy Dyspnea Verified 04/01/21 09:00 [From Compazine] quetiapine Allergy Unknown Verified 04/01/21 09:00 tolmetin [From Tolectin] Allergy Dyspnea Verified 04/01/21 09:00 Androgenic Anabolic Steroid AdvReac Severe Chest Pain Verified 04/01/21 09:00 bee venom protein (honey bee) AdvReac Rash/Hives Verified 04/01/21 09:00 gabapentin [From Neurontin] AdvReac Rash/Hives Verified 04/01/21 09:00
[~2021-04-02 09:09] MED LIST changes: +ACETAMINOPHEN TAB 500 MG TAB PO PRN; +DEXAMETHASONE SOD PHOSPHATE 4 MG/ML 1 ML VIAL IV ONE; +HEPARIN SODIUM,PORCINE/PF 5,000 UNIT/0.5 ML SYRINGE SQ PRN; +HYDROmorphone 0.5 MG/0.5 ML SYRINGE IVP PRN; +INDOCYANINE GREEN 25 MG VIAL IV PRN; +ONDANSETRON 4 MG/2 ML VIAL IVP ONE; +SCOPOLAMINE 1.5MG/72HR PATCH TRANSDERM ONE
[2021-04-02 09:53] LABS: Basophils # (A) 0.1 k/uL (0-0.2); Basophils % (A) 1 %; Eosinophils # (A) 0.2 k/uL (0-0.7); Eosinophils % (A) 2 %; HCT 42.1 % (34.0-46.0); HGB 14.5 gm/dL (11.4-16.0); Lymphocytes # (A) 2.3 k/uL (1.0-4.8); Lymphocytes % (A) 27 %; MCH 32.4 pg (25.0-35.0); MCHC 34.3 g/dL (31.0-37.0); MCV 94.4 fL (80.0-100.0); Mean Platelet Volume 8.7; Monocytes # (A) 0.5 k/uL (0-1.0); Monocytes % (A) 6 %; Neutrophils # (A) 5.4 k/uL (1.3-7.7); Neutrophils % (A) 63 %; Platelet Count 272 k/uL (150-450); RBC 4.46 m/uL (3.80-5.40); RDW 12.9 % (11.5-15.5); WBC 8.6 k/uL (3.8-10.6)
[2021-04-02 10:03] LABS: ALT 13 U/L (4-34); African American GFR (CKD) >90 (>60 ml/min/1.73 sqM); Albumin 4.2 g/dL (3.5-5.0); Anion Gap 7 mmol/L; Blood Urea Nitrogen 8 mg/dL (7-17); Calcium 9.5 mg/dL (8.4-10.2); Carbon Dioxide 29 mmol/L (22-30); Chloride 106 mmol/L (98-107); Glucose 100 mg/dL (74-99); Non-African American GFR(CKD) >90 (>60 ml/min/1.73 sqM); Sodium 142 mmol/L (137-145); Total Bilirubin 0.5 mg/dL (0.2-1.3); Total Protein 6.7 g/dL (6.3-8.2)
[2021-04-02 10:14] LABS: Potassium 4.5 mmol/L (3.5-5.1)
[2021-04-02 10:15] LABS: AST 25 U/L (14-36); Alkaline Phosphatase 154 U/L (38-126)
[2021-04-02] MEDS ORDERED: HYDROmorphone (PF) 1 MG/ML ONE (10:30)
[2021-04-02] MEDS ORDERED: fentaNYL (PF) 50 MCG/ML 2 ML AMP ONE (10:30)
[2021-04-02] MEDS ORDERED: MIDAZOLAM 2 MG/2 ML VIAL ONE (10:30)
[2021-04-02] MEDS ORDERED: ROCURONIUM 10 MG/ML (5 ML VIAL) IV ONE (10:30)
[2021-04-02] MEDS ORDERED: SUGAMMADEX SODIUM 500 MG/5 ML SDV IV ONE (10:30)
[2021-04-02] MEDS ORDERED: SUCCINYLCHOLINE CHLORIDE 100 MG/5 ML SYR IV ONE (10:30)
[2021-04-02] MEDS ORDERED: PROPOFOL 10 MG/ML 20 ML VIAL IV ONE (10:30)
[2021-04-02] MEDS ORDERED: INDOCYANINE GREEN 25 MG VIAL IV ONE (10:30)
[2021-04-02] MEDS ORDERED: LIDOCAINE 1% INJ 10MG/ML (20 ML MDV) ONE (10:30)
[2021-04-02] MEDS ORDERED: LIDOCAINE 1%-EPI 1:100,000 20 ML VIAL SQ ONE ×2 (10:52→10:55)
[2021-04-02] MEDS ORDERED: HYDROcodone/APAP 5-325MG 1 EACH TAB PO STA (11:39)
[2021-04-02] MEDS ORDERED: HYDROmorphone 1 MG/ML 1 ML SYRINGE IVP PRN (11:39)
--- NOTE | 2021-04-02 11:44 | P.OP ---
Date of Procedure: 04/02/21 Description of Procedure: SURGEON: SKYLER OLMSTEAD MD PREOPERATIVE DIAGNOSES: 1. Chronic cholecystitis 2. Biliary dyskinesia 3. Rheumatoid arthritis 4. Obstructive sleep apnea 5. Gastroesophageal reflux disease 6. Morbid obesity due to excess calories, BMI 37.2 7. Depressive disorder 8. Generalized anxiety disorder 9. Bipolar disorder 10. Posttraumatic stress disorder 11. Multiple drug ALLERGIES POSTOPERATIVE DIAGNOSES: 1. Chronic cholecystitis 2. Biliary dyskinesia 3. Rheumatoid arthritis 4. Obstructive sleep apnea 5. Gastroesophageal reflux disease 6. Morbid obesity due to excess calories, BMI 37.2 7. Depressive disorder 8. Generalized anxiety disorder 9. Bipolar disorder 10. Posttraumatic stress disorder 11. Multiple drug ALLERGIES 12. Peritoneal adhesions, right upper quadrant OPERATION: 1. Robotic-assisted da Clara Xi laparoscopic lysis of adhesions 2. Robotic-assisted da Clara Xi laparoscopic cholecystectomy, multiport with FIREFLY ESTIMATED BLOOD LOSS: 10 mL. SPECIMENS REMOVED: Gallbladder. COMPLICATIONS: None. OPERATIVE FINDINGS: 1. Scarring over infundibulum of gallbladder with peritoneal adhesions, pericholecystic with features of chronic cholecystitis INDICATIONS: The patient is a 60-year-old female who presents with chronic cholecystitis. Robotic assisted laparoscopic approach was described. Benefits and risks of the procedure including but not limited to bleeding, infection, injury to the biliary tree was described. Informed consent was obtained. DESCRIPTION OF PROCEDURE: Patient was brought to the operating room, placed in supine position. After general induction, the abdomen had been prepped and draped in standard sterile fashion. The robotic da Clara XI system was primed. After a timeout protocol was performed, the patient had been prepped and draped in standard sterile fashion. The patient was injected with indocyanine green. A 5 mm 0 degrees laparoscopic trocar entry was performed along the left upper quadrant. The abdomen insufflated to 15 mmHg pressure which was tolerated well. Diagnostic laparoscopy demonstrated no injury to bowel viscera or mesentery. The liver surface was unremarkable. Next, two 8 mm robotic ports were placed along the right upper abdomen. The camera 8-mm port was maintained along the epigastrium. Another 8 mm port was placed along the left upper abdominal wall after exchanging the 5 mm port. Please note that the ports were placed at least 10 to 15 cm away from the target anatomy of the gallbladder. The robot was docked along the left lateral abdomen. The patient was repositioned in reverse Trendelenburg position. Using a grasper for arm 3, a grasper for arm 4, including hook cautery for arm 1, the robotic system was docked and primed as described. Instruments were interchanged by the respiratory therapy assistant including hook cautery, Bovie cautery and clip appliers. I had sat at the console. The gallbladder was scarred with peritoneal adhesions. Lysis of adhesions was performed to free the gallbladder from the surrounding tissues including along the infundibulum. Next attention was brought to the infundibulum and cystic structures. The infundibulum and cystic duct were dissected free from surrounding tissues. The cystic duct was isolated. FIREFLY was used to identify the cystic artery and cystic structures. A critical view of safety was obtained. Large PLASTIC clips were used throughout the entire case. Using a clip seasonal driver, 2 clips were placed at the junction of the infundibulum and cystic duct. The cystic duct was divided between clips. Next, the cystic artery was similarly clipped and cauterized. Electro-Bovie cautery was used to remove the gallbladder from the hepatic fossa. Hemostasis was checked and found to be adequate. The robot was undocked. I re-scrubbed into the case. Using a 10 mm Endo Catch bag via the left upper quadrant incision, the specimen was removed from the abdominal cavity. All pneumoperitoneum instruments were evacuated from the abdominal cavity. The incisions were reapproximated using 4-0 Monocryl in an interrupted subcuticular fashion. Fascial defects were less than 8 mm in size. Please note along the trocar sites, local anesthetic was placed as a field block prior to insertion of all instruments. Liquid glue was applied to the skin. At the end of the procedure needle, sponge, and instrument count had been verified correct by the operating room surgical technician. The patient was transferred to postanesthesia care unit in stable condition. Intraoperative films were shared with the patient's family. Plan - Discharge Summary Discharge Rx Participant: No New Discharge Prescriptions: Continue rOPINIRole HCL [Requip] 1 mg PO HS Oxybutynin Chloride [Ditropan] 5 mg PO HS Omeprazole 20 mg PO 0700,1200 Cholecalciferol [Vitamin D3 (25 Mcg = 1000 Iu)] 1,000 unit PO DAILY Carboxymethylcellulose Sodium [Refresh Tears] 1 drop BOTH EYES BID Docusate [Colace] 100 mg PO BID Hydrocodone/Acetaminophen [Cope 5-325] 1 each PO Q6HR PRN #20 tab PRN Reason: Pain Multivitamins, Thera [Multivitamin (formulary)] 1 tab PO DAILY Lidocaine 5% Patch [Lidoderm 5% Patch] 1 patch TOPICAL DAILY PRN PRN Reason: Pain Simvastatin 40 mg PO HS Albuterol Sulfate [Proair Respiclick] 1 puff PO QID PRN PRN Reason: sob Melatonin 10 mg PO HS PRN PRN Reason: sleep Capsaicin Cream [Trixaicin Cream] 1 applic TOPICAL DIRECTED PRN PRN Reason: Pain DULoxetine HCL [Cymbalta] 60 mg PO 0700,1200 Loratadine-Pseudoeph 10-240 mg [Claritin-D 24 Hour] 1 tab PO DAILY OXcarbazepine [Trileptal] 75 mg PO 0700,1200 Discharge Medication List Carboxymethylcellulose Sodium [Refresh Tears] 1 drop BOTH EYES BID 01/04/17 [History] Cholecalciferol [Vitamin D3 (25 Mcg = 1000 Iu)] 1,000 unit PO DAILY 01/04/17 [History] Omeprazole 20 mg PO 0700,1200 01/04/17 [History] Oxybutynin Chloride [Ditropan] 5 mg PO HS 01/04/17 [History] rOPINIRole HCL [Requip] 1 mg PO HS 01/04/17 [History] Docusate [Colace] 100 mg PO BID 04/03/19 [History] Hydrocodone/Acetaminophen [Cope 5-325] 1 each PO Q6HR PRN #20 tab 06/08/20 [Rx] Lidocaine 5% Patch [Lidoderm 5% Patch] 1 patch TOPICAL DAILY PRN 11/26/20 [History] Multivitamins, Thera [Multivitamin (formulary)] 1 tab PO DAILY 11/26/20 [History] Albuterol Sulfate [Proair Respiclick] 1 puff PO QID PRN 04/01/21 [History] Capsaicin Cream [Trixaicin Cream] 1 applic TOPICAL DIRECTED PRN 04/01/21 [History] DULoxetine HCL [Cymbalta] 60 mg PO 0700,1200 04/01/21 [History] Loratadine-Pseudoeph 10-240 mg [Claritin-D 24 Hour] 1 tab PO DAILY 04/01/21 [History] Melatonin 10 mg PO HS PRN 04/01/21 [History] OXcarbazepine [Trileptal] 75 mg PO 0700,1200 04/01/21 [History] Simvastatin 40 mg PO HS 04/01/21 [History]
[2021-04-02 11:50] VITALS: TEMP 96.8
[2021-04-02 11:58] VITALS: RESP 16
[2021-04-02] MEDS ORDERED: LACTATED RINGERS 1,000 ML IV ONE (12:10)
[2021-04-02 13:39] VITALS: BP 102/70; PULSE 91
[2021-04-02] MEDS ORDERED: HYDROcodone/APAP 5-325MG 1 EACH TAB PO PRN (15:30)
== END 2021-04-02 14:17 | disposition home or self-care (01) ==
LOC: OR 09:09
PROVIDERS: ATTEND Surgery Plastic and Reconstructive Surgery
DX: K80.10 Calculus of gallbladder with chronic cholecystitis without obstruction (principal); M06.9 Rheumatoid arthritis, unspecified; G47.33 Obstructive sleep apnea (adult) (pediatric); K21.9 Gastro-esophageal reflux disease without esophagitis; E66.01 Morbid (severe) obesity due to excess calories; Z68.37 Body mass index [BMI] 37.0-37.9, adult; F41.1 Generalized anxiety disorder; F31.9 Bipolar disorder, unspecified; F43.10 Post-traumatic stress disorder, unspecified; K66.0 Peritoneal adhesions (postprocedural) (postinfection); G43.909 Migraine, unspecified, not intractable, without status migrainosus; N39.3 Stress incontinence (female) (male); Z87.891 Personal history of nicotine dependence; E78.5 Hyperlipidemia, unspecified; Z88.6 Allergy status to analgesic agent; Z88.8 Allergy status to other drugs, medicaments and biological substances
CPT/HCPCS: 47562; S2900; 80053; 85025; 88304

== ENCOUNTER → 2021-08-26 | Outpatient (CLI) | payer MEDICARE ==
--- NOTE | 2021-08-26 12:00 | XR ---
EXAMINATION TYPE: XR knee complete LT DATE OF EXAM: 08/26/2021 COMPARISON: NONE HISTORY: Pain TECHNIQUE: Three views are submitted. FINDINGS: Diffuse osteopenia. There is postsurgical changes. Soft tissue ossification noted along the upper mar gin of the patella. Chronic appearing deformity of the superior margin of the patella. No definite ac [place] fracture. IMPRESSION: 1. Postsurgical change and diffuse osteopenia.
== END | disposition home or self-care (01) ==
LOC: RADXRYALE 11:33
PROVIDERS: ATTEND Physician Assistant Medical
DX: M25.562 Pain in left knee (principal); M85.88 Other specified disorders of bone density and structure, other site

== ENCOUNTER → 2022-08-19 | Outpatient (CLI) | payer MEDICARE ==
--- NOTE | 2022-08-19 10:07 | XR ---
EXAMINATION TYPE: XR hand complete RT DATE OF EXAM: 08/19/2022 COMPARISON: 07/06/2020 HISTORY: 62-year-old female [id number], right hand pain, fourth and fifth MCP joints after fall TECHNIQUE: 3 views FINDINGS: There is some dorsal soft tissue swelling overlying the metacarpals. Scattered osteoarthritic spurrin g is present at the DIP joints. Mild osteoarthritic change at the first CMC joint. No acute fracture, subluxation, dislocation seen. IMPRESSION: Scattered mild osteoarthritic change. No acute osseous abnormality seen. There may be some soft tissu e swelling overlying the knuckles on the lateral view.
== END | disposition home or self-care (01) ==
LOC: RADXRYALE 09:05
PROVIDERS: ATTEND Physician Assistant Medical
DX: M19.041 Primary osteoarthritis, right hand (principal)

== ENCOUNTER 2023-04-04 12:57 | Emergency (ER) | payer OTHER ==
[2023-04-04 13:23] VITALS: TEMP 98.8
[2023-04-04] MEDS ORDERED: SODIUM CHLORIDE 0.9% 1,000 ML IV ONE (14:24)
[2023-04-04] MEDS ORDERED: MAG HYDROX/AL HYDROX/SIMETH 30 ML, HYOSCYAMINE ELIXIR 10 ML, LIDOCAINE 2% GLYDO JELLY 1... PO STA ×3 (14:25)
[2023-04-04 14:46] VITALS: RESP 20
--- NOTE | 2023-04-04 14:48 | ED ---
General Adult HPI - General Chief complaint: Abdominal Pain Stated complaint: Abd Pain Time Seen by Provider: 04/04/23 13:26 Source: patient, RN notes reviewed Mode of arrival: ambulatory - History of Present Illness Initial comments: 62-year-old female past medical history significant for cholecystectomy presents the emergency department with a chief complaint of gen eralized abdominal pain. She reports generalized abdominal pain worsening for the last 2 months. She reports the pain as a sharp and dull pain. She didn't take anything for her symptoms. She reports is worse after drinking alcohol. Specifically, chills, cough, sore throat, shortness of breath, palpitations. She's been taking her medications as prescribed. - Related Data Home Medications Medication Instructions Recorded Confirmed Carboxymethylcellulose Sodium 1 drop BOTH EYES BID 01/04/17 04/01/21 [Refresh Tears] Cholecalciferol [Vitamin D3 (25 1,000 unit PO DAILY 01/04/17 04/01/21 Mcg = 1000 Iu)] Omeprazole 20 mg PO 0700,1200 01/04/17 04/01/21 oxyBUTYnin chloride [Ditropan] 5 mg PO HS 01/04/17 04/01/21 rOPINIRole HCL [Requip] 1 mg PO HS 01/04/17 04/01/21 Docusate [Colace] 100 mg PO BID 04/03/19 04/01/21 Lidocaine 5% Patch [Lidoderm 5% 1 patch TOPICAL DAILY PRN 11/26/20 04/02/21 Patch] Multivitamins, Thera [Multivitamin 1 tab PO DAILY 11/26/20 04/01/21 (formulary)] Albuterol Sulfate [Proair 1 puff PO QID PRN 04/01/21 04/02/21 Respiclick] Capsaicin Cream [Trixaicin Cream] 1 applic TOPICAL DIRECTED PRN 04/01/21 04/01/21 DULoxetine HCL [Cymbalta] 60 mg PO 0700,1200 04/01/21 04/01/21 Loratadine-Pseudoeph 10-240 mg 1 tab PO DAILY 04/01/21 04/02/21 [Claritin-D 24 Hour] Melatonin [Melatonin ER] 10 mg PO HS PRN 04/01/21 04/01/21 OXcarbazepine [Trileptal] 75 mg PO 0700,1200 04/01/21 04/01/21 Simvastatin [Zocor] 40 mg PO HS 04/01/21 04/01/21 Previous Rx's Medication Instructions Recorded Hydrocodone/Acetaminophen [[place] 1 each PO Q6HR PRN #20 tab 06/08/20 5-325] Acetaminophen Tab [Tylenol Tab] 1,000 mg PO Q6HR PRN #30 tablet 04/02/21 Simethicone [Gas-X] 125 mg PO AC-TID PRN #20 capsule 04/02/21 Famotidine [Pepcid] 20 mg PO BID #28 tablet 04/04/23 Allergies Allergy/AdvReac Type Severity Reaction Status Date / Time alprazolam Allergy Dyspnea Verified 04/04/23 13:23 aspirin Allergy Dyspnea Verified 04/04/23 13:23 diclofenac Allergy Dyspnea Verified 04/04/23 13:23 divalproex sodium Allergy Unknown Verified 04/04/23 13:23 [From Depakote] flurazepam [From Dalmane] Allergy Dyspnea Verified 04/04/23 13:23 ibuprofen [From Motrin] Allergy Dyspnea Verified 04/04/23 13:23 NSAIDS (Non-Steroidal Allergy Dyspnea Verified 04/04/23 13:23 Anti-Inflamma prochlorperazine Allergy Dyspnea Verified 04/04/23 13:23 [From Compazine] quetiapine Allergy Unknown Verified 04/04/23 13:23 tolmetin [From Tolectin] Allergy Dyspnea Verified 04/04/23 13:23 Androgenic Anabolic Steroid AdvReac Severe Chest Pain Verified 04/04/23 13:23 gabapentin [From Neurontin] AdvReac Rash/Hives Verified 04/04/23 13:23 STEROIDS Allergy Anaphylaxis Uncoded 04/04/23 13:23 Review of Systems ROS Statement: Those systems with pertinent positive or pertinent negative responses have been documented in the HPI. ROS Other: All systems not noted in ROS Statement are negative. Past Medical History Past Medical History: GERD/Reflux, Hyperlipidemia, Osteoarthritis (OA), Sleep Apnea/CPAP/BIPAP Additional Past Medical History / Comment(s): STRESS INCONTINENCE History of Any Multi-Drug Resistant Organisms: None Reported Past Surgical History: Heart Catheterization, Tonsillectomy Additional Past Surgical History / Comment(s): LAPAROSCOPIC EXAM , LEFT INDEX FINGER , COLONOSCOPY, EGD, DENTAL EXTRACTIONS Past Anesthesia/Blood Transfusion Reactions: No Reported Reaction Additional Past Anesthesia/Blood Transfusion Reaction / Comment(s): had diff breathing with dalmane Past Psychological History: Anxiety, Depression, PTSD Smoking Status: Vaper Past Alcohol Use History: None Reported - Past Family History Mother Family Medical History: No Reported History Father Family Medical History: Cancer General Exam - General Exam Comments Initial Comments: General: Alert, in no acute distress Head: atraumatic normocephalic. Eyes PERRL, EOMI intact, mucous membranes moist Respiratory: Lungs clear to auscultation bilaterally Cardiovascular: Heart rate regular rate and rhythm Abdominal: Soft without guarding or rebound, generalized tenderness Extremities: Normal inspection with full range of motion and normal capillary refill Neuroogic: alert and oriented 3, CN II-XII intact, able to ambulate with steady gait Skin: warm dry and intact with normal color Course Vital Signs 04/04/23 04/04/23 04/04/23 13:18 14:45 15:00 Temperature 98.8 F Pulse Rate 87 77 79 Respiratory 18 20 20 Rate Blood Pressure 119/81 129/79 130/78 O2 Sat by Pulse 96 97 98 Oximetry 04/04/23 16:16 Temperature Pulse Rate 68 Respiratory 20 Rate Blood Pressure 140/68 O2 Sat by Pulse 98 Oximetry EKG Findings - EKG Comments: EKG Findings:: I interpreted the following: EKG performed at 13:06. Rate 77 bpm and sinus rhythm. OH interval 148, QRS duration 90, QT/QTc 409/441 Medical Decision Making - Medical Decision Making Was pt. sent in by a medical professional or institution (, PA, NURSING HOME ADMINISTRATOR, urgent care, hospital, or group home...) When possible be specific @ -[No] Did you speak to anyone other than the patient for history (EMS, parent, family, police, friend...)? What history was obtained from this source @ -[No] Did you review nursing and triage notes (agree or disagree)? Why? @ -[I reviewed and agree with nursing and triage notes] Were old charts reviewed (outside hosp., previous admission, EMS record, old EKG, old radiological studies, urgent care reports/EKG's, group home records)? Report findings @ -[No old charts were reviewed] Differential Diagnosis (chest pain, altered mental status, abdominal pain women, abdominal pain men, vaginal bleeding, weakness, fever, dyspnea, syncope, headache, dizziness, GI bleed, back pain, seizure, CVA, palpatations, mental health, musculoskeletal)? @ -[not applicable] EKG interpreted by me (3pts min.). @ -[As above] X-rays interpreted by me (1pt min.). @ -[None done] CT interpreted by me (1pt min.). @ -ET does not reveal any evidence of intra-abdominal process. there is an hiatal hernia present U/S interpreted by me (1pt. min.). @ -[None done] What testing was considered but not performed or refused? (CT, X-rays, U/S, labs)? Why? @ -[None] What meds were considered but not given or refused? Why? @ -[None] Did you discuss the management of the patient with other professionals (juanjo hameed i.e. , PA, NURSING HOME ADMINISTRATOR, lab, RT, psych nurse, social work msw, clin tech, teacher, credit officer, case packer and sealer)? Give summary @ -[No] Was smoking cessation discussed for >3mins.? @ -[No] Was critical care preformed (if so, how long)? @ -[No] Were there social determinants of health that impacted care today? How? (Homelessness, low income, unemployed, alcoholism, drug addiction, transpo rtation, low edu. Level, literacy, decrease access to med. care, care home, rehab)? @ -[No] Was there de-escalation of care discussed even if they declined (Discuss DNR or withdrawal of care, Hospice)? DNR status @ -[No] What co-morbidities impacted this encounter? (DM, HTN, Smoking, COPD, CAD, Cancer, CVA, ARF, Chemo, Hep., AIDS, mental health diagnosis, sleep apnea, morbid obesity)? @ -[None] Was patient admitted / discharged? Hospital course, mention meds given and route, prescriptions, significant lab abnormalities, going to OR and other pertinent info. @ -Discharged. This is a 62-year-old female with no significant past medical history who presents to the emergency department with abdominal pain. Patient had a thorough history and physical exam performed on the emergency department. Heart rate regular rate and rhythm, lungs clear to auscultation bilaterally, abdomen soft nontender. There are no focal neuro deficits noted upon exam. Patient able to ambulate with steady gait and move Extremities freely Patient had lab work and imaging which revealed was negative. Discussed the results in detail with the patient verbalized understanding and all questions were addressed. She was given a GI cocktail and 1 L IV fluids with symptomatic relief She'll be discharged home in stable condition with strict return precautions discussed. Patient discharged in stable condition. Case discussed with Dr. Payton [facility] who agrees with plan of care Undiagnosed new problem with uncertain prognosis? @ -[No] Drug Therapy requiring intensive monitoring for toxicity (Heparin, Nitro, Insuli n, Cardizem)? @ -[No] Were any procedures done? @ -[No] Diagnosis/symptom? @ -Abdominal Pain - Hiatal Hernia Acute, or Chronic, or Acute on Chronic? @ -Acute Uncomplicated (without systemic symptoms) or Complicated (systemic symptoms)? @ -Uncomplicated Side effects of treatment? @ -[No] Exacerbation, Progression, or Severe Exacerbation? @ -[No] Poses a threat to life or bodily function? How? (Chest pain, [place], [place], pneumonia, PE, COPD, DKA, ARF, appy, cholecystitis, CVA, Diverticulitis, Homicidal, Suicidal, threat to staff... and all critical care pts) @ -Low Likelihood - Lab Data Result diagrams: 04/04/23 14:24 04/04/23 14:24 Lab Results 04/04/23 04/04/23 04/04/23 Range/Units 14:24 14:24 14:24 WBC 8.4 (3.8-10.6) k/uL RBC 4.68 (3.80-5.40) m/uL Hgb 15.2 (11.4-16.0) gm/dL Hct 45.4 (34.0-46.0) % MCV 97.0 (80.0-100.0) fL MCH 32.5 (25.0-35.0) pg MCHC 33.5 (31.0-37.0) g/dL RDW 12.9 (11.5-15.5) % Plt Count 281 (150-450) k/uL MPV 9.3 Neutrophils % 61 % Lymphocytes % 29 % Monocytes % 5 % Eosinophils % 3 % Basophils % 1 % Neutrophils # 5.1 (1.3-7.7) k/uL Lymphocytes # 2.4 (1.0-4.8) k/uL Monocytes # 0.5 (0-1.0) k/uL Eosinophils # 0.2 (0-0.7) k/uL Basophils # 0.0 (0-0.2) k/uL Sodium 139 (137-145) mmol/L Potassium 4.4 (3.5-5.1) mmol/L Chloride 105 (98-107) mmol/L Carbon Dioxide 28 (22-30) mmol/L Anion Gap 6 mmol/L BUN 9 (7-17) mg/dL Creatinine 0.68 (0.52-1.04) mg/dL Est GFR (CKD-EPI)AfAm >90 (>60 ml/min/1.73 sqM) Est GFR (CKD-EPI)NonAf >90 (>60 ml/min/1.73 sqM) Glucose 99 (74-99) mg/dL Plasma Lactic Acid Yunier (0.7-2.0) mmol/L Calcium 9.3 (8.4-10.2) mg/dL Total Bilirubin 0.4 (0.2-1.3) mg/dL AST 26 (14-36) U/L ALT 25 (4-34) U/L Alkaline Phosphatase 147 H (38-126) U/L Total Protein 6.9 (6.3-8.2) g/dL Albumin 4.1 (3.5-5.0) g/dL Lipase 85 (23-300) U/L Urine Color Yellow Urine Appearance Clear (Clear) Urine pH 5.5 (5.0-8.0) Ur Specific Sayner 1.010 (1.001-1.035) Urine Protein Negative (Negative) Urine Glucose (UA) Negative (Negative) Urine Ketones Negative (Negative) Urine Blood Negative (Negative) Urine Nitrite Negative (Negative) Urine Bilirubin Negative (Negative) Urine Urobilinogen <2.0 (<2.0) mg/dL Ur Leukocyte Esterase Moderate H (Negative) Urine RBC 1 (0-5) /hpf Urine WBC 2 (0-5) /hpf Ur Squamous Epith Cells 1 (0-4) /hpf Urine Mucus Rare H (None) /hpf 04/04/23 Range/Units 14:24 WBC (3.8-10.6) k/uL RBC (3.80-5.40) m/uL Hgb (11.4-16.0) gm/dL Hct (34.0-46.0) % MCV (80.0-100.0) fL MCH (25.0-35.0) pg MCHC (31.0-37.0) g/dL RDW (11.5-15.5) % Plt Count (150-450) k/uL MPV Neutrophils % % Lymphocytes % % Monocytes % % Eosinophils % % Basophils % % Neutrophils # (1.3-7.7) k/uL Lymphocytes # (1.0-4.8) k/uL Monocytes # (0-1.0) k/uL Eosinophils # (0-0.7) k/uL Basophils # (0-0.2) k/uL Sodium (137-145) mmol/L Potassium (3.5-5.1) mmol/L Chloride (98-107) mmol/L Carbon Dioxide (22-30) mmol/L Anion Gap mmol/L BUN (7-17) mg/dL Creatinine (0.52-1.04) mg/dL Est GFR (CKD-EPI)AfAm (>60 ml/min/1.73 sqM) Est GFR (CKD-EPI)NonAf (>60 ml/min/1.73 sqM) Glucose (74-99) mg/dL Plasma Lactic Acid Yunier 0.9 (0.7-2.0) mmol/L Calcium (8.4-10.2) mg/dL Total Bilirubin (0.2-1.3) mg/dL AST (14-36) U/L ALT (4-34) U/L Alkaline Phosphatase (38-126) U/L Total Protein (6.3-8.2) g/dL Albumin (3.5-5.0) g/dL Lipase (23-300) U/L Urine Color Urine Appearance (Clear) Urine pH (5.0-8.0) Ur Specific Sayner (1.001-1.035) Urine Protein (Negative) Urine Glucose (UA) (Negative) Urine Ketones (Negative) Urine Blood (Negative) Urine Nitrite (Negative) Urine Bilirubin (Negative) Urine Urobilinogen (<2.0) mg/dL Ur Leukocyte Esterase (Negative) Urine RBC (0-5) /hpf Urine WBC (0-5) /hpf Ur Squamous Epith Cells (0-4) /hpf Urine Mucus (None) /hpf Disposition Clinical Impression: Abdominal pain, Hiatal hernia Disposition: HOME SELF-CARE Condition: Stable Instructions (If sedation given, give patient instructions): Abdominal Pain (ED) Additional Instructions: Return to the nearest emergency department if symptoms worsen or persist Prescriptions: Famotidine [Pepcid] 20 mg PO BID #28 tablet Is patient prescribed a controlled substance at d/c from ED?: No [facility]errals[facility] [[facility] - 1-2 days Time of Disposition: 16:14
[2023-04-04 14:57] LABS: Basophils % (A) 1 %; Eosinophils # (A) 0.2 k/uL (0-0.7); Eosinophils % (A) 3 %; HCT 45.4 % (34.0-46.0); HGB 15.2 gm/dL (11.4-16.0); Lymphocytes # (A) 2.4 k/uL (1.0-4.8); Lymphocytes % (A) 29 %; MCH 32.5 pg (25.0-35.0); MCHC 33.5 g/dL (31.0-37.0); Mean Platelet Volume 9.3; Monocytes # (A) 0.5 k/uL (0-1.0); Monocytes % (A) 5 %; Neutrophils # (A) 5.1 k/uL (1.3-7.7); Neutrophils % (A) 61 %; Platelet Count 281 k/uL (150-450); RBC 4.68 m/uL (3.80-5.40); RDW 12.9 % (11.5-15.5); WBC 8.4 k/uL (3.8-10.6)
[2023-04-04 15:09] LABS: Appearance,Urine Clear (Clear); Bilirubin,Urine Negative (Negative); Blood,Urine Negative (Negative); Color,Urine Yellow; Glucose,Urine (UA) Negative (Negative); Ketones,Urine Negative (Negative); Leukocyte Esterase,Urine Moderate (Negative); Mucus,Urine Rare /hpf; Nitrite,Urine Negative (Negative); PH, Urine 5.5 (5.0-8.0); Protein,Urine Negative (Negative); RBC,Urine 1 /hpf (0-5); Squamous Epithelial Cell,Urine 1 /hpf (0-4); Urobilinogen,Urine <2.0 mg/dL (<2.0); WBC,Urine 2 /hpf (0-5)
[2023-04-04 15:18] LABS: ALT 25 U/L (4-34); AST 26 U/L (14-36); African American GFR (CKD) >90 (>60 ml/min/1.73 sqM); Albumin 4.1 g/dL (3.5-5.0); Alkaline Phosphatase 147 U/L (38-126); Anion Gap 6 mmol/L; Blood Urea Nitrogen 9 mg/dL (7-17); Calcium 9.3 mg/dL (8.4-10.2); Carbon Dioxide 28 mmol/L (22-30); Chloride 105 mmol/L (98-107); Glucose 99 mg/dL (74-99); Lipase 85 U/L (23-300); Non-African American GFR(CKD) >90 (>60 ml/min/1.73 sqM); Potassium 4.4 mmol/L (3.5-5.1); Sodium 139 mmol/L (137-145); Total Bilirubin 0.4 mg/dL (0.2-1.3); Total Protein 6.9 g/dL (6.3-8.2)
--- NOTE | 2023-04-04 15:44 | CT ---
EXAMINATION TYPE: CT abdomen pelvis w con DATE OF EXAM: 04/04/2023 COMPARISON: CTA chest 06/08/2020 INDICATION: EPIGASTRIC PAIN DLP: 1873.5 mGycm, Automated exposure control for dose reduction was used. CONTRAST: 100 mL of Isovue 300. Study performed without Oral Contrast TECHNIQUE: Axial images were obtained from above the diaphragm to the pubic rami in the axial plane a t 5 mm thick sections. Reconstructed images are reviewed on the computer in the coronal plane. FINDINGS: Limited CT sections are obtained the lung bases. There is a large herniation of the stomach into the lower thoracic region. Gastroesophageal junction is above the diaphragm. Stomach is largely within t he intrathoracic region with extension towards the normally positioned in the second portion of duode num. This was present on the comparison and appears stable. Lung art appear clear. CT ABDOMEN: Liver: Normal Spleen: Normal Pancreas: Normal Adrenal glands: The adrenal glands are normal. Gallbladder: Not identified Kidneys: No masses are evident. No hydronephrosis is present. No cysts are present. Delayed images were obtained through the kidneys, which remain unremarkable. Aorta: Vascular calcification is within the aorta. Inferior vena cava: Normal. CT PELVIS: Loops of bowel within the abdomen and pelvis are normal. This study is without oral contrast limi ting bowel evaluation. Appendix: Not identified. No dilated tubular structure or inflammatory changes evident. Urinary bladder: Normal. Genitourinary structures: Uterus is unremarkable. Adnexa are normal. Osseous structures: No suspicious lytic or sclerotic lesions. Facet degenerative changes are within t he lumbar spine. IMPRESSIONS: 1. No acute abnormality CT abdomen and pelvis. 2. 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
[2023-04-04 16:16] VITALS: BP 140/68; PULSE 68
== END 2023-04-04 16:19 | disposition home or self-care (01) ==
LOC: EC 12:57
DX: K44.9 Diaphragmatic hernia without obstruction or gangrene (principal); K21.9 Gastro-esophageal reflux disease without esophagitis; E78.5 Hyperlipidemia, unspecified; M19.90 Unspecified osteoarthritis, unspecified site; G47.30 Sleep apnea, unspecified; F41.9 Anxiety disorder, unspecified; F32.A Depression, unspecified; F17.290 Nicotine dependence, other tobacco product, uncomplicated; Z79.1 Long term (current) use of non-steroidal anti-inflammatories (NSAID); Z79.899 Other long term (current) drug therapy; Z88.6 Allergy status to analgesic agent; Z88.5 Allergy status to narcotic agent; Z88.8 Allergy status to other drugs, medicaments and biological substances
CPT/HCPCS: 36415; 93005; 80053; 83605; 83690; 85025; 81001; 74177; 99284; 96360; Q9967

== ENCOUNTER → 2023-06-21 | Day surgery (SDC) | payer MEDICARE, OTHER ==
[~2023-06-21] MED LIST changes: -ACETAMINOPHEN TAB 500 MG TAB PO PRN; -DEXAMETHASONE SOD PHOSPHATE 4 MG/ML 1 ML VIAL IV ONE; -HEPARIN SODIUM,PORCINE/PF 5,000 UNIT/0.5 ML SYRINGE SQ PRN; -HYDROmorphone 0.5 MG/0.5 ML SYRINGE IVP PRN; -INDOCYANINE GREEN 25 MG VIAL IV PRN; -LIDOCAINE 1% (10MG/ML) FOR IV START INTRADERMA PRN; +LIDOCAINE 2% INJ 20 MG/ML (2 ML VIAL) ONE; -ONDANSETRON 4 MG/2 ML VIAL IVP ONE; +PROPOFOL 10 MG/ML 20 ML VIAL IV ONE; -SCOPOLAMINE 1.5MG/72HR PATCH TRANSDERM ONE
[2023-06-21 07:17] VITALS: TEMP 96.9
--- NOTE | 2023-06-21 08:40 | P.PCN ---
Date of Procedure: 06/21/23 Procedure(s) Performed: Brief history: Patient is a pleasant 63-year-old white female scheduled for an elective upper endoscopy as well as colonoscopy as a part of evaluation of abdominal pain and prior history of colon polyps Procedure performed: Esophagogastroduodenoscopy with biopsy Colonoscopy with snare polypectomy Preoperative diagnosis: Chronic upper abdominal pain History of colon polyps Anesthesia: MAC Procedure: After informed consent was obtained from the patient was brought into the end oscopy unit and IV sedation was administered by anesthesia under continuous monitoring. Initially upper endoscopy was done. The Olympus GF 160 video endoscope was inserted inserted into the mouth and esophagus intubated without any difficulty and was gradually advanced into the stomach and duodenum and carefully examined. The bulb and second part of the duodenum appeared normal. The scope was then withdrawn into the stomach adequately insufflated with air and upon careful examination the antrum had mild gastritis and biopsies were done from this area. Mucosa of the body, cardia and fundus appeared normal. The scope was then withdrawn into the esophagus. The 2 large sessile hernia noted. The diaphragmatic impression was located 40 cm from the incisors. The GE junction was located at 30 cm to the incisors. It appeared regular with no erythema erosions or ulcerations. Rest of the esophagus appeared normal. Patient tolerated the procedure well. At this time the patient continued to remain sedation. Initial digital rectal examination was normal. Olympus CF 160 video colonoscope was then inserted into the rectum and gradually advanced to the cecum without any difficulty. Careful examination was performed as the scope was gradually being withdrawn. The prep was excellent. The cecum, appeared normal. In the ascending colon there was a 1 mm polyp removed by snare polypectomy. In the transverse colon there were 2 polyps measuring between 1 cm and 1.5 cm in size removed by snare polypectomy. In the descending colon there was a 5 mm polyp removed by snare polypectomy. In the sigmoid: There was another 5 mm polyp removed by snare polypectomy. Rest of the ascending colon, transverse colon, descending colon, sigmoid colon and rectum appeared normal. Scattered sigmoid diverticulosis. Retroflexion was performed in the rectum and no lesions were noted. Patient tolerated the procedure well. Impression: 1. Upper Endoscopy revealed moderate to large size hiatal hernia and mild antral gastritis 2. Colonoscopy revealed a) 2 cm ascending colon polyp status post snare polypectomy b) 1 cm and 1.5 cm transverse colon polyp status post polypectomy c) 5 mm descending colon polyp status post polypectomy d) 5 mm sigmoid polyp status post polypectomy e) scattered sigmoid diverticula Recommendations: Findings of this examination were discussed with the patient as wellas her family. She was advised to follow with the biopsy results. If the biopsy results adenoma she can have a repeat colonoscopy in 3 years
[2023-06-21 08:47] VITALS: RESP 16
[2023-06-21 09:10] VITALS: BP 110/74; PULSE 74
== END ==
LOC: ORWHC2ENDO 06:53
PROVIDERS: ATTEND Internal Medicine Gastroenterology
DX: Z12.11 Encounter for screening for malignant neoplasm of colon (principal); D12.2 Benign neoplasm of ascending colon; D12.4 Benign neoplasm of descending colon; D12.3 Benign neoplasm of transverse colon; K29.50 Unspecified chronic gastritis without bleeding; K31.A0 Gastric intestinal metaplasia, unspecified; K21.9 Gastro-esophageal reflux disease without esophagitis; K44.9 Diaphragmatic hernia without obstruction or gangrene; K57.30 Diverticulosis of large intestine without perforation or abscess without bleeding; G47.33 Obstructive sleep apnea (adult) (pediatric); J45.909 Unspecified asthma, uncomplicated; G25.81 Restless legs syndrome; M06.9 Rheumatoid arthritis, unspecified; M19.90 Unspecified osteoarthritis, unspecified site; F17.210 Nicotine dependence, cigarettes, uncomplicated; Z86.010 Personal history of colon polyps; Z88.6 Allergy status to analgesic agent; Z88.8 Allergy status to other drugs, medicaments and biological substances; Z79.51 Long term (current) use of inhaled steroids; Z79.83 Long term (current) use of bisphosphonates; Z79.891 Long term (current) use of opiate analgesic; Z96.653 Presence of artificial knee joint, bilateral; Z79.899 Other long term (current) drug therapy
CPT/HCPCS: 88305; 45385; 43239; J2704; J2001

== ENCOUNTER → 2023-11-29 | Outpatient (CLI) | payer OTHER ==
--- NOTE | 2023-12-03 18:14 | MM ---
Reason for Exam: Screening (asymptomatic). Last screening mammogram was performed 12 month(s) ago. Patient History: Menarche at age 13. First Full-Term at age 29. Postmenopausal. Patient has history of breast feeding. Hormonal Contraceptives for 20 years from age 30 until age 50. Maternal grandmother had breast cancer, age 68. Risk Values: Leyla 5 year model risk: 1.7%. NCI Lifetime model risk: 7.7%. Prior Study Comparison: 03/26/2018 Bilateral Screening Mammogram, [facility]. 11/19/2020 Bilateral Screening Mammogram, [facility]. 11/25/2022 Bilateral MG 3D screening mammo w/cad, [facility]. Tissue Density: There are scattered areas of fibroglandular density. Findings: Analyzed By CAD. There is no suspicious group of microcalcifications or new suspicious mass in either breast. Overall Assessment: Negative, BI-RAD 1 Management: Screening Mammogram of both breasts in 1 year. . Patient should continue monthly self-breast exams. A clinical breast exam by your physician is recommended on an annual basis. This exam should not preclude additional follow-up of suspicious palpable abnormalities. Note on Leyla scores and lifetime risk: 1. A Leyla score greater than 3% is considered moderate risk. If this is the case, consider specialist referral to assess eligibility for a risk reducing agent. 2. If overall lifetime risk for the development of breast cancer is 20% or higher, the patient may qualify for future screening with alternating mammogram and breast MRI. Electronically signed and approved by: Carson Metcalf M.D. Radiologist
== END | disposition home or self-care (01) ==
LOC: RADMAMWWP 11:24
PROVIDERS: ATTEND Family Medicine
DX: Z12.31 Encounter for screening mammogram for malignant neoplasm of breast (principal); Z78.0 Asymptomatic menopausal state; Z80.3 Family history of malignant neoplasm of breast
CPT/HCPCS: 77063; 77067

== ENCOUNTER 2024-06-02 08:29 | Emergency (ER) | payer OTHER, MEDICARE ==
[2024-06-02 08:49] VITALS: RESP 18
--- NOTE | 2024-06-02 09:17 | ED ---
Skin/Abscess/FB HPI - General Chief complaint: Skin/Abscess/Foreign Body Stated complaint: Poison rachel Time Seen by Provider: 06/02/24 08:52 Source: patient, RN notes reviewed Mode of arrival: ambulatory Limitations: no limitations - History of Present Illness Initial comments: This is a 64-year-old female who presents to the emergency department for conc erns of poison rachel. States that she developed this about 5 days ago and it has spread to her face, chest, abdomen, neck, and hands. She has tried [id number] Benadryl without any relief. States that the itching is becoming more more bothersome. Denies any chest pain or shortness of breath. MD complaint: rash - Related Data Home Medications Medication Instructions Recorded Confirmed Carboxymethylcellulose Sodium 1 drop BOTH EYES BID 01/04/17 06/21/23 [Refresh Tears] Cholecalciferol [Vitamin D3 (25 1,000 unit PO QAM 01/04/17 06/21/23 Mcg = 1000 Iu)] Omeprazole 20 mg PO 0700,1200 01/04/17 06/21/23 oxyBUTYnin chloride [Ditropan] 5 mg PO HS 01/04/17 06/21/23 rOPINIRole HCL [Requip] 1 mg PO HS 01/04/17 06/21/23 Docusate [Colace] 100 mg PO BID 04/03/19 06/21/23 Multivitamins, Thera [Multivitamin 1 tab PO QAM 11/26/20 06/20/23 (formulary)] Albuterol Sulfate [Proair 1 puff PO QID PRN 04/01/21 06/21/23 Respiclick] Loratadine-Pseudoeph 10-240 mg 1 tab PO QAM 04/01/21 06/21/23 [Claritin-D 24 Hour] Melatonin [Melatonin ER] 10 mg PO HS PRN 04/01/21 06/21/23 OXcarbazepine [Trileptal] 75 mg PO 0700,1200 04/01/21 06/21/23 Simvastatin [Zocor] 40 mg PO HS 04/01/21 06/21/23 Previous Rx's Medication Instructions Recorded Hydrocodone/Acetaminophen [[place] 1 each PO Q6HR PRN #20 tab 06/08/20 5-325] hydrOXYzine HCL [Atarax] 25 mg PO QID PRN #30 tab 06/02/24 predniSONE 10 mg PO DIRECTED 24 Days #84 06/02/24 tab Allergies Allergy/AdvReac Type Severity Reaction Status Date / Time alprazolam Allergy Dyspnea Verified 06/02/24 08:50 aspirin Allergy Dyspnea Verified 06/02/24 08:50 diclofenac Allergy Dyspnea Verified 06/02/24 08:50 divalproex sodium Allergy Unknown Verified 06/02/24 08:50 [From Depakote] flurazepam [From Dalmane] Allergy Dyspnea Verified 06/02/24 08:50 gabapentin [From Neurontin] Allergy Rash/Hives Verified 06/02/24 08:50 ibuprofen [From Motrin] Allergy Dyspnea Verified 06/02/24 08:50 NSAIDS (Non-Steroidal Allergy Dyspnea Verified 06/02/24 08:50 Anti-Inflamma prochlorperazine Allergy Dyspnea Verified 06/02/24 08:50 [From Compazine] quetiapine Allergy Unknown Verified 06/02/24 08:50 tolmetin [From Tolectin] Allergy Dyspnea Verified 06/02/24 08:50 Androgenic Anabolic Steroid AdvReac Severe Chest Pain Verified 06/02/24 08:50 STEROIDS Allergy Severe Anaphylaxis Uncoded 06/02/24 08:50 Review of Systems ROS Statement: Those systems with pertinent positive or pertinent negative responses have been documented in the HPI. ROS Other: All systems not noted in ROS Statement are negative. Past Medical History Past Medical History: GERD/Reflux, Hyperlipidemia, Osteoarthritis (OA), Sleep Apnea/CPAP/BIPAP Additional Past Medical History / Comment(s): Pt having stomach pain and has hiatal hernia. STRESS INCONTINENCE, leg spasms History of Any Multi-Drug Resistant Organisms: None Reported Past Surgical History: Cholecystectomy, Heart Catheterization, Hernia Repair, Orthopedic Surgery, Tonsillectomy Additional Past Surgical History / Comment(s): LAPAROSCOPIC EXAM , LEFT INDEX FINGER , COLONOSCOPY, EGD, DENTAL EXTRACTIONS, ABDOMINAL HERNIA Past Anesthesia/Blood Transfusion Reactions: No Reported Reaction Additional Past Anesthesia/Blood Transfusion Reaction / Comment(s): had diff breathing with dalmane Past Psychological History: Anxiety, Depression, PTSD Smoking Status: Current every day smoker, Vaper Past Alcohol Use History: None Reported Past Drug Use History: None Reported - Past Family History Father Family Medical History: Cancer General Exam Limitations: no limitations General appearance: alert, in no apparent distress Respiratory exam: Present: normal lung sounds bilaterally. Absent: respiratory distress, wheezes, rales, rhonchi, stridor Cardiovascular Exam: Present: regular rate, normal rhythm, normal heart sounds. Absent: systolic murmur, diastolic murmur, rubs, gallop, clicks Neurological exam: Present: alert, oriented X3, CN II-XII intact Psychiatric exam: Present: normal affect, normal mood Skin exam: Present: other (Rash on the face, neck, abdomen, and bilateral upper extremities.) Course Vital Signs 06/02/24 06/02/24 06/02/24 08:47 09:58 10:20 Temperature 97.8 F 97.9 F 97.9 F Pulse Rate 91 81 67 Respiratory 18 18 18 Rate Blood Pressure 118/76 111/67 116/76 O2 Sat by Pulse 98 96 97 Oximetry Medical Decision Making - Medical Decision Making This is a 64-year-old female who presents to the emergency department for concerns of poison rachel. Was pt. sent in by a medical professional or institution? @ -No Did you speak to anyone other than the patient for history? @ -No Did you review nursing and triage notes? @ -Yes, and I agree, it is accurate with regards to the patient's symptoms. Were old charts reviewed? @ -No Differential Diagnosis? @ -Differential Rash: Roseola, measles, Lyme disease, erythema multiforme, cellulitis, toxic shock syndrome, [place] Live syndrome, Kawasaki disease, zee mountain spotted feve r, contact dermatitis, allergic dermatitis, measles, mumps, rubella, varicella, meningococcal disease, drug reaction, coxsackievirus, This is not meant to be an all-inclusive list. EKG interpreted by me (3pts min.)? @ -Not obtained X-rays interpreted by me (1pt min.)? @ -Not obtained CT interpreted by me (1pt min.)? @ -Not obtained U/S interpreted by me (1pt. min.)? @ -Not obtained What testing was considered but not performed? (CT, X-rays, U/S, labs)? Why? @ -None What meds were considered but not given? Why? @ -None Did you discuss the management of the patient with other professionals? @ -No Did you reconcile home meds? @ -No Was smoking cessation discussed for >3mins.? @ -No Was critical care preformed (if so, how long)? @ -No Were there social determinants of health that impacted care today? How? (Homelessness, low income, unemployed, alcoholism, drug addiction, transportation, low edu. Level, literacy, decrease access to med. care, retirement, rehab)? @ -No Was there de-escalation of care discussed even if they declined? (Discuss DNR or withdrawal of care, Hospice)? @ -No What co-morbidities impacted this encounter? (DM, HTN, Smoking, COPD, CAD, Cancer, CVA, Hep., AIDS, mental health diagnosis, sleep apnea, morbid obesity)? @ -None Was patient admitted / discharged? @ -Discharged. Patient's symptoms and physical exam are consistent with poison rachel dermatitis. Solu-Medrol and clobetasol cream administered in the emergency department along with a dose of Atarax. Prescription for prednisone taper and Atarax prescribed for further symptomatic management. Advised continuing to use the clobetasol cream twice daily as needed. We also discussed ojvc-srs-[id number] options for symptomatic control. Patient discharged home in stable condition. Case discussed with ED attending Dr. Brizuela. Return precautions reviewed in depth, the patient is instructed to return to the emergency department with any new, worsening, or concerning symptoms. Patient verbalized understanding. Undiagnosed new problem with uncertain prognosis? @ -None Drug Therapy requiring intensive monitoring for toxicity (Heparin, Nitro, Insulin, Cardizem)? @ -None Were any procedures done? @ -None Diagnosis/symptom? @ -Poison rcahel Acute, or Chronic, or Acute on Chronic? @ -Acute Uncomplicated (without systemic symptoms) or Complicated (systemic symptoms)? @ -Uncomplicated Side effects of treatment? @ -None Exacerbation, Progression, or Severe Exacerbation] @ -Not applicable Poses a threat to life or bodily function? @ -No Disposition Clinical Impression: Poison rachel Disposition: HOME SELF-CARE Instructions (If sedation given, give patient instructions): Poison Rachel (ED) Additional Instructions: Return to the emergency department with any new, worsening, or concerning symptoms. You will take the prednisone daily for the next 24 days based on the following regimen: Take 6 tablets (60mg) x 4 days, 5 tablets (50mg) x 4 days, 4 tablets (40mg) x 4 days, 3 tablets (30mg) x 4 days, 2 tablets (20mg) x 4 days, 10 tablets (10mg) x 4 days. You can take the Atarax up to 4 times daily to see if this is helpful for the itching. You can also try oatmeal baths, cool/wet compresses, calamine lotion, Burow solution, and Zanfel, all of which can be purchased over the counter. You can apply the clobetasol cream provided up to twice daily to the affected areas. Avoid applying this to the face. Follow up with your primary care provider in 1-2 days. Prescriptions: hydrOXYzine HCL [Atarax] 25 mg PO QID PRN #30 tab PRN Reason: Itching predniSONE 10 mg PO DIRECTED 24 Days #84 tab Is patient prescribed a controlled substance at d/c from ED?: No Referrals: [facility],Clinic [Primary Care Provider] - 1-2 days Time of Disposition: 09:20
[2024-06-02] MEDS: methylPREDNISolone SOD SUCCI 125 MG/2 ML VIAL IM ONE ×2 (09:22→09:41)
[2024-06-02] MEDS: hydrOXYzine HCL 25 MG TAB PO STA (09:31)
[2024-06-02] MEDS: CLOBETASOL PROP 0.05% CR 15GM TOPICAL STA (09:41)
[2024-06-02] MEDS: predniSONE 20 MG TAB PO STA (09:41)
[2024-06-02 09:59] VITALS: TEMP 97.9
[2024-06-02 10:21] VITALS: BP 116/76; PULSE 67
== END 2024-06-02 10:40 | disposition home or self-care (01) ==
LOC: EC 08:29
CPT/HCPCS: 96372; 99282

== ENCOUNTER → 2024-08-08 | Outpatient (CLI) | payer OTHER ==
--- NOTE | 2024-08-08 12:03 | CT ---
EXAMINATION TYPE: CT abdomen pelvis wo/w con DATE OF EXAM: 08/08/2024 COMPARISON: 04/04/2023 CLINICAL INDICATION: Female, 64 years old with history of R10.10 UPPER ABD PAIN; PHH, epigastric pain TECHNIQUE: Performed with Oral Contrast and without and with IV Contrast, patient injected with 100 mL of Isovue 370. CT DLP: [address] CTDI: mGy Automated exposure control for dose reduction was used. FINDINGS: The lung bases are clear. There is a stable large hiatal hernia with a partially intrathoracic stomac h. There is surgical absence of the gallbladder. There is no biliary ductal dilatation. There is no focal mass or organomegaly involving the liver, pancreas, spleen or adrenal glands. There is no solid renal mass or hydronephrosis and there is homogeneous contrast enhancement of the r enal parenchyma. The caliber the abdominal aorta is normal is no retroperitoneal adenopathy or hemorr tristan. The bowel loops are normal in caliber and there is no evidence of dilatation or obstruction. No infla mmatory changes are identified in the bowel wall or mesentery. There is no free intraperitoneal air or fluid. No pelvic mass, free fluid, abscess or adenopathy. The osseous structures and soft tissues are intact. IMPRESSION: 1. Stable large hiatal hernia with partially intrathoracic stomach. 2. No acute changes within the abdomen or pelvis. 3. Status post cholecystectomy. [facility], , 08/08/2024 12:00 PM
== END | disposition home or self-care (01) ==
LOC: RADCTMAIN 09:07
PROVIDERS: ATTEND Family Medicine
DX: K44.9 Diaphragmatic hernia without obstruction or gangrene (principal); R10.13 Epigastric pain; Z90.49 Acquired absence of other specified parts of digestive tract
CPT/HCPCS: 74178; Q9967

== ENCOUNTER → 2024-12-30 | Outpatient (CLI) | payer OTHER ==
--- NOTE | 2024-12-30 12:13 | MM ---
Reason for Exam: Screening (asymptomatic). Last mammogram was performed 1 year(s) and 1 month(s) ago. Patient History: Menarche at age 13. First Full-Term at age 29. Postmenopausal. Patient has history of breast feeding. Hormonal Contraceptives for 20 years from age 30 until age 50. Maternal grandmother had breast cancer, age 68. Prior Study Comparison: 11/19/2020 Bilateral Screening Mammogram, [facility]. 11/25/2022 Bilateral MG 3D screening mammo w/cad, [facility]. 11/29/2023 Bilateral MG 3D screening mammo w/cad, [facility]. Tissue Density: There are scattered areas of fibroglandular density. Findings: Analyzed By CAD. There is no suspicious group of microcalcifications or new suspicious mass in either breast. Overall Assessment: Negative, BI-RAD 1 Management: Screening Mammogram of both breasts in 1 year. . Patient should continue monthly self-breast exams. A clinical breast exam by your physician is recommended on an annual basis. This exam should not preclude additional follow-up of suspicious palpable abnormalities. Note on Leyla scores and lifetime risk: 1. A Leyla score greater than 3% is considered moderate risk. If this is the case, consider specialist referral to assess eligibility for a risk reducing agent. 2. If overall lifetime risk for the development of breast cancer is 20% or higher, the patient may qualify for future screening with alternating mammogram and breast MRI. [facility], , 12/30/2024 12:10 PM. Electronically signed and approved by: Santy Doe M.D.
== END | disposition home or self-care (01) ==
LOC: RADMAMWWP 10:58
PROVIDERS: ATTEND Family Medicine
DX: Z12.31 Encounter for screening mammogram for malignant neoplasm of breast (principal); R92.323 Mammographic fibroglandular density, bilateral breasts; Z78.0 Asymptomatic menopausal state; Z80.3 Family history of malignant neoplasm of breast; Z92.0 Personal history of contraception
CPT/HCPCS: 77063; 77067

== ENCOUNTER → 2025-01-02 | Outpatient (CLI) | payer OTHER ==
--- NOTE | 2025-01-02 14:50 | BD ---
EXAMINATION TYPE: Axial Bone Density DATE OF EXAM: 01/02/2025 CLINICAL HISTORY: 64 years old Female. ICD-10 CODE: Z13.89 ENCOUNTER FOR SCREENING FOR OTHER DISORDE R , Additional History: Height: 66 Weight: 244.8 FRAX RISK QUESTIONS: Alcohol (3 or more units per day): no Family History (Parent hip fracture): no Glucocorticoids (More than 3mos): no (Ex: prednisone, prednisolone, methylprednisolone, dexamethasone, and hydrocortisone). History of Fracture in Adulthood: yes Secondary Osteoporosis: 1. Type 1 Diabetes: no 2. Hyperthyroidism: no 3. Menopause before 45: no 4. Malnutrition: no 5. Chronic liver disease: no Rheumatoid Arthritis: yes Current Tobacco Use: no RISK FACTORS HISTORY OF: Surgery to Spine/Hip(right/left)/Wrist (right/left): no EXAM MEASUREMENTS: Bone mineral densitometry was performed using the [employer] System. Bone mineral density as measured about the Lumbar spine is: ----- L1-L4(G/cm2): 0.963 T Score Values are as follows: ----- L1: -1.8 ----- L2: -1.7 ----- L3: -2.4 ----- L4: -1.5 ----- L1-L4: -1.8 Z Score Values are as follows: ----- L1: -1.5 ----- L2: -1.4 ----- L3: -2.1 ----- L4: -1.2 ----- L1-L4: -1.5 Bone mineral density : baseline Bone mineral density about the R hip (g/cm2): 0.965 Bone mineral density about the L hip (g/cm2): 0.952 T Score values are as follows: -----R Neck: -0.6 -----L Neck: -1.0 -----R Total: -0.3 -----L Total: -0.4 Z Score values are as follows: -----R Neck: 0.1 -----L Neck: -0.3 -----R Total: -0.1 -----L Total: -0.2 Bone mineral density : baseline FRAX%s: The graph provided illustrates a 8.9% chance for a major osteoporotic fx and a 0.6% chance fo r the hips probability for fx in 10 years time. IMPRESSION: Osteopenia (T Score between -2.5 and -1). There is slightly increased risk of fracture and the patient may be considered for treatment. Re-Screen 2-5 years. NOTE: T-SCORE=SD OF THE YOUNG ADULT MEAN. [facility], , 01/02/2025 2:48 PM
== END | disposition home or self-care (01) ==
LOC: RADBDWWP 12:30
PROVIDERS: ATTEND Social Worker Clinical
DX: Z13.89 Encounter for screening for other disorder (principal); M85.89 Other specified disorders of bone density and structure, multiple sites
CPT/HCPCS: 77080

== ENCOUNTER → 2025-04-15 | Outpatient (CLI) | payer OTHER ==
--- NOTE | 2025-04-15 10:25 | XR ---
EXAMINATION TYPE: XR lumbar spine 2 or 3V, XR sacrum coccyx DATE OF EXAM: 04/15/2025 CLINICAL HISTORY: Low back pain TECHNIQUE: Three views of the lumbar spine are submitted. Three views of the sacrum/coccyx are submit nita. COMPARISON: Gadolinium pelvis 08/08/2024 FINDINGS: There are 5 lumbar type vertebral bodies identified. The lumbar spine shows satisfactory alignment w ithout evidence of acute fracture or dislocation. Vertebral body heights are within normal limits. Disc spaces are within normal limits. Bilateral facet arthropathy at L5-S1. The overlying soft tissue appears unremarkable. The sacrum/coccyx appears unremarkable. Both SI joints appear intact. Atherosc lerotic calcification of the aorta. IMPRESSION: No acute fracture or dislocation is seen in the lumbar spine. No significant degenerative disc diseas e identified. [facility], , 04/15/2025 10:23 AM
== END | disposition home or self-care (01) ==
LOC: RADXRMAIN 09:45
PROVIDERS: ATTEND Family Medicine
DX: M54.50 Low back pain, unspecified (principal)
CPT/HCPCS: 72100; 72220